=== PATIENT | male | born 1965 | race Caucasian/White ===

== ENCOUNTER → 2017-04-13 | Outpatient (CLI) | payer OTHER ==
[2017-04-13 13:24] VITALS: BP 137/81; PULSE 75; TEMP 97.5; BMI 72.3
--- NOTE | 2017-06-17 18:33 | P.HPBAR ---
Bariatric H&P - History & Physicial H&P Date: 04/13/17 History & Physicial: Visit/CC: Patient initial contact: Initial weight: Initial weight in pounds: Height: Initial BMI: Last weight: Current weight: Current weight in pounds: Current BMI: [place] body weight (based on NIH guidelines): Excess body weight loss: The patient is a 51 year-old M who presents for Bariatric Assessment. DATE OF SERVICE: 04/13/2017 REASON FOR CONSULTATION: Initial bariatric evaluation. HISTORY OF PRESENT ILLNESS: Geovanny Barker is a 51-year-old male who presents with lifelong morbid obesity. As a result of his super morbid obesity, he has developed diabetes type 2 including hypertension. He is undergoing medical supervised weight loss. His highest personal weight was 513 pounds. His body mass index was 76.5. Today he comes in weighing 485 pounds. He has undergone low-carb diet and lost up to 75 pounds. Denies any family history esophageal or stomach cancer. No diarrhea. No reports of Crohn's disease or ulcerative colitis. He has not had a colonoscopy. Has a family history of morbid obesity. He also reports chronic chronic back pain including bilateral knee, ankle, foot pain. Denies any food ALLERGIES. His personal goal is to get down to 220 pounds. He reports past tobacco use over 10 years ago. At his height is 5 foot 8.75 inches, he presents 485 pounds. His body mass index is 72.4. He is 322 pounds overweight. His ideal body weight is 163 pounds. He is evaluating for gastric bypass. PAST MEDICAL HISTORY: 1. Morbid obesity due to excess calories. 2. Body mass index of 76.5 down to 72.4. 3. Hypertensive heart disease. 4. Diabetes type 2, [id number]. 5. Depression. 6. Osteoarthritis of the knees. 7. Osteoarthritis of the ankles. 8. Osteoarthritis of the feet. 9. Osteoarthritis of the lower back. PAST SURGICAL HISTORY: 1. No abdominal surgeries. 2. Tonsillectomy. HOME MEDICATIONS: 1. Glucophage. 2. Januvia. 3. Lisinopril. 4. Lexapro. 5. Motrin. ALLERGIES: Denies. SOCIAL HISTORY: Past tobacco use. FAMILY HISTORY: No family history of ulcerative colitis disease or Crohn's disease. Family history of morbid obesity. No lupus in family. No reports of stomach or esophageal cancer. Mother had thyroid cancer. REVIEW OF ORGAN SYSTEMS: CONSTITUTIONAL: At his height is 5 foot 8.75 inches, he presents 485 pounds. His body mass index is 72.4. He is 322 pounds overweight. His ideal body weight is 163 pounds. His highest personal weight was 513 pounds. His body mass index was 76.5. Today he comes in weighing 485 pounds. Body mass index of 76.5 down to 72.4. HEENT: Denies any active troubles with vision or hearing. No troubles with swallowing. ENDOCRINE: Has diabetes and is on 2 medications for control. No hypothyroidism. CARDIOVASCULAR: No reports of palpitations or heart attacks or chest pain. Has hypertension. RESPIRATORY: No asthma. No recent pneumonias. GI: Denies any bright red blood per rectum or constipation. Does have gastroesophageal reflux disease. MUSCULOSKELETAL: No scoliosis of the spine. Has lower back pain, hip or knee pain. NEURO: No headaches. No seizure disorders. PSYCH: Has depression. No suicidal ideation. RHEUMATOLOGIC: No lupus. No rheumatoid arthritis. HEMATOLOGIC: Denies any abnormal bleeding or bruising. No personal history of DVTs. SKIN: No rash. No skin cancer. PHYSICAL EXAM: VITAL SIGNS: Height 5 foot 8.75 inches, weight 485 pounds. BMI 72.4 Vital Signs Temp 97.5 F L 04/13/17 13:22 Pulse 75 04/13/17 13:22 Resp BP 137/81 04/13/17 13:22 Pulse Ox GENERAL: Well-developed male in no acute distress. HEENT: No scleral icterus. Extraocular movements grossly intact. Hears conversational speech. No nasal drainage. NECK: Supple without lymphadenopathy. CHEST: Nonlabored respirations with equal bilateral excursions. CARDIOVASCULAR: Regular rate on repeat assessment. Distal 2+ pulses. ABDOMEN: Obese, soft, nontender, nondistended. MUSCULOSKELETAL: No clubbing, cyanosis. Gross strength 5/5 distal lower extremities. 2+ pre-tibial pitting edema. NEURO: No focal or lateralizing signs. Cranial nerves 2 through 12 grossly within normal limits. PSYCH: Appropriate affect. Alert and oriented to person, place and time. SKIN: Good skin turgor. Well perfused. ASSESSMENT: 1. Morbid obesity due to excess calories. 2. Body mass index of 76.5 down to 72.4. 3. Hypertensive heart disease. 4. Diabetes type 2, [id number]. 5. Depression. 6. Osteoarthritis of the knees. 7. Osteoarthritis of the ankles. 8. Osteoarthritis of the feet. 9. Osteoarthritis of the lower back. 10. Colonoscopy screening. PLAN: 1. Surgical options including a band, gastric bypass, sleeve gastrectomy were described in detail. Alternatives such as gastric balloon including duodenal switch were described. 2. The [place] bariatric surgical collaborative data and outcomes calculator were described with surgical options. He is evaluating for gastric bypass. 3. Recommend a bariatric metabolic panel to evaluate for micro- including macronutrient deficiencies. 4. Recommend evaluation for sleep apnea during upper endoscopy. 5. Dietary surveillance and counseling was reviewed. 6. Will need cardiac risk assessment for any presence of abnormal EKG. 7. Recommend medical risk assessment. 8. Psych assessment per insurance guidelines. 9. Follow up upon completion of upper endoscopy. 10. Will need six-month medical supervised weight loss pressure with of goal of 10% weight loss. His goal is to get down to 462 pounds. He has lost 25 pounds. 11. Recommend lower endoscopy for colonic screening. Thank you for this consultation. Past Medical History Past Medical History: No Reported History History of Any Multi-Drug Resistant Organisms: None Reported Past Surgical History: Tonsillectomy Past Psychological History: No Psychological Hx Reported Smoking Status: Never smoker Past Alcohol Use History: None Reported Past Drug Use History: None Reported Bariatric Checklist Checklist: Plan: Checklist: EGD: 1. Hiatal hernia: 2. H. Pylori: HgbA1c: Vitamin D: Smoking: Never smoker Primary care physician referral: Psychiatry clearance: Cardiology clearance: Sleep study: Diet journal: VTE risk score: VTE risk level: Rehab needs at discharge:
== END ==
LOC: BARWHC3 11:09
PROVIDERS: ATTEND Surgery Plastic and Reconstructive Surgery
DX: Z48.815 Encounter for surgical aftercare following surgery on the digestive system (principal); E66.01 Morbid (severe) obesity due to excess calories; I11.9 Hypertensive heart disease without heart failure; E11.9 Type 2 diabetes mellitus without complications; F32.9 Major depressive disorder, single episode, unspecified; M17.0 Bilateral primary osteoarthritis of knee; M19.071 Primary osteoarthritis, right ankle and foot; M19.072 Primary osteoarthritis, left ankle and foot; M47.816 Spondylosis without myelopathy or radiculopathy, lumbar region; E89.1 Postprocedural hypoinsulinemia; D50.8 Other iron deficiency anemias; E44.0 Moderate protein-calorie malnutrition; E55.9 Vitamin D deficiency, unspecified; G47.30 Sleep apnea, unspecified; Z68.45 Body mass index [BMI] 70 or greater, adult; Z90.89 Acquired absence of other organs; Z79.899 Other long term (current) drug therapy; Z79.1 Long term (current) use of non-steroidal anti-inflammatories (NSAID); Z87.891 Personal history of nicotine dependence; Z12.11 Encounter for screening for malignant neoplasm of colon
CPT/HCPCS: 99211

== ENCOUNTER → 2017-05-17 | Outpatient (CLI) | payer OTHER ==
[2017-05-17 13:36] VITALS: BP 157/81; PULSE 81; RESP 18; TEMP 98.2; BMI 71.3
[2017-05-17 15:09] LABS: HCT 50.5 % (39.0-53.0); HGB 15.7 gm/dL (13.0-17.5); MCH 27.2 pg (25.0-35.0); MCV 87.7 fL (80.0-100.0); Mean Platelet Volume 6.9; Platelet Count 320 k/uL (150-450); RBC 5.76 m/uL (4.30-5.90); RDW 13.8 % (11.5-15.5); WBC 8.6 k/uL (3.8-10.6)
[2017-05-17 15:15] LABS: ALT 61 U/L (21-72); AST 39 U/L (17-59); Albumin 4.1 g/dL (3.5-5.0); Alkaline Phosphatase 71 U/L (38-126); Anion Gap 12 mmol/L; Blood Urea Nitrogen 16 mg/dL (9-20); Calcium 9.9 mg/dL (8.4-10.2); Carbon Dioxide 27 mmol/L (22-30); Chloride 106 mmol/L (98-107); Cholesterol 191 mg/dL (<200); Glucose 81 mg/dL (74-99); HDL Cholesterol 43 mg/dL (40-60); LDL Cholesterol,Calculated 125 mg/dL (0-99); Potassium 4.5 mmol/L (3.5-5.1); Sodium 145 mmol/L (137-145); Total Bilirubin 0.3 mg/dL (0.2-1.3); Total Protein 7.3 g/dL (6.3-8.2); Triglycerides 113 mg/dL (<150)
[2017-05-17 20:19] LABS: Iron Saturation 18.59 (15.00-50.00)
[2017-05-17 20:28] LABS: Folate, Serum 4.4 ng/mL
[2017-05-17 20:38] LABS: Vitamin D 25 Hydroxy 8.9 ng/mL (30.0-100.0)
[2017-05-17 23:53] LABS: Hemoglobin A1C 5.3 % (4.0-6.0)
[2017-05-22 06:41] LABS: Anabasine Urine 12.4 ng/mL (<2.0)
--- NOTE | 2017-07-03 06:29 | P.PN ---
Subjective Progress Note Date: 05/17/17 DATE OF SERVICE: 05/17/2017 CHIEF COMPLAINT: Bariatric evaluation. HISTORY OF PRESENT ILLNESS: Geovanny Barker is a 51-year-old male who presents with lifelong morbid obesity. As a result of his super morbid obesity, he has developed diabetes type 2 including hypertension. He is undergoing medical supervised weight loss. His highest personal weight was 513 pounds. His body mass index was 76.5. Today he comes in weighing 479 pounds. He has lost 7 pounds in 1 month. He is under medical supervised weight loss. He has completed both an upper and lower endoscopy. No reports of abdominal pain. At his height is 5 foot 8.75 inches, he presents 479 pounds. His body mass index is 71.3. He is 316 pounds overweight. His ideal body weight is 163 pounds. He is evaluating for gastric bypass. He has lost 34 pounds with dieting. PAST MEDICAL HISTORY: 1. Morbid obesity due to excess calories. 2. Body mass index of 76.5. 3. Hypertensive heart disease. 4. Diabetes type 2, [id number]-ggtshee-zshbikppd. 5. Depression. 6. Osteoarthritis of the knees. 7. Osteoarthritis of the ankles. 8. Osteoarthritis of the feet. 9. Osteoarthritis of the lower back. PAST SURGICAL HISTORY: 1. No abdominal surgeries. 2. Tonsillectomy. HOME MEDICATIONS: 1. Glucophage. 2. Januvia. 3. Lisinopril. 4. Lexapro. 5. Motrin. ALLERGIES: Denies. SOCIAL HISTORY: Past tobacco use. FAMILY HISTORY: No family history of ulcerative colitis disease or Crohn's disease. Family history of morbid obesity. No lupus in family. No reports of stomach or esophageal cancer. Mother had thyroid cancer. REVIEW OF ORGAN SYSTEMS: CONSTITUTIONAL: At his height is 5 foot 8.75 inches, his ideal body weight is 163 pounds. His highest personal weight was 513 pounds. His body mass index was 76.5. Today he comes in weighing 479 pounds. Body mass index of 76.5 down to 71.3. HEENT: Denies any active troubles with vision or hearing. No troubles with swallowing. ENDOCRINE: Has diabetes and is on 2 medications for control. No hypothyroidism. CARDIOVASCULAR: No reports of palpitations or heart attacks or chest pain. Has hypertension. RESPIRATORY: No asthma. No recent pneumonias. GI: Denies any bright red blood per rectum or constipation. Does have gastroesophageal reflux disease. MUSCULOSKELETAL: No scoliosis of the spine. Has lower back pain, hip or knee pain. NEURO: No headaches. No seizure disorders. PSYCH: Has depression. No suicidal ideation. RHEUMATOLOGIC: No lupus. No rheumatoid arthritis. HEMATOLOGIC: Denies any abnormal bleeding or bruising. No personal history of DVTs. SKIN: No rash. No skin cancer. PHYSICAL EXAM: VITAL SIGNS: Height 5 foot 8.75 inches, weight 479 pounds. BMI 71.3 Vital Signs Temp 98.2 F 05/17/17 13:29 Pulse 81 05/17/17 13:29 Resp 18 05/17/17 13:29 BP 157/81 05/17/17 13:29 Pulse Ox GENERAL: Well-developed male in no acute distress. HEENT: No scleral icterus. Extraocular movements grossly intact. Hears conversational speech. No nasal drainage. NECK: Supple without lymphadenopathy. CHEST: Nonlabored respirations with equal bilateral excursions. CARDIOVASCULAR: Regular rate on repeat assessment. Distal 2+ pulses. ABDOMEN: Obese, soft, nontender, nondistended. MUSCULOSKELETAL: No clubbing, cyanosis. Gross strength 5/5 distal lower extremities. 2+ pre-tibial pitting edema. NEURO: No focal or lateralizing signs. Cranial nerves 2 through 12 grossly within normal limits. PSYCH: Appropriate affect. Alert and oriented to person, place and time. SKIN: Good skin turgor. Well perfused. COLON FINDINGS: Internal hemorrhoids, grade 1 No external prolapsed hemorrhoids. No arteriovenous malformations. Moderate sigmoid diverticulosis. A 3 mm polyp was identified along 30 cm from the anal verge, hyperplastic. No focal colitis. EGD FINDINGS: Squamocolumnar junction 42 cm from the incisors. Diaphragmatic hiatus at 42 cm. Hill grade 3 lower esophageal valve. LA grade B erosive esophagitis. Active gastritis. No active duodenitis. Final Pathologic Diagnosis A. GASTRIC ANTRUM, BIOPSY: CHRONIC GASTRITIS. IMMUNOPEROXIDASE STAIN NEGATIVE FOR HELICOBACTER PYLORI ORGANISMS (CONTROLS APPROPRIATE). B. COLON, 30 CM, BIOPSY: HYPERPLASTIC POLYP. ASSESSMENT: 1. Morbid obesity due to excess calories. 2. Body mass index of 76.5 down to 71.3. 3. Hypertensive heart disease. 4. Diabetes type 2, [id number]-ulwinhtgo. 5. Depression. 6. Osteoarthritis of the knees. 7. Osteoarthritis of the ankles. 8. Osteoarthritis of the feet. 9. Osteoarthritis of the lower back. 10. Obstructive sleep apnea. PLAN: 1. Repeat colonoscopy in 5 years discussed. 2. Recommend completion of bariatric labs. 3. He's pending completion of medical risk profile. 4. He is evaluating for gastric bypass. ADDENDUM: Laboratory Last Values WBC 8.6 k/uL (3.8-10.6) 05/17/17 14:37 RBC 5.76 m/uL (4.30-5.90) 05/17/17 14:37 Hgb 15.7 gm/dL (13.0-17.5) 05/17/17 14:37 Hct 50.5 % (39.0-53.0) 05/17/17 14:37 MCV 87.7 fL (80.0-100.0) 05/17/17 14:37 MCH 27.2 pg (25.0-35.0) 05/17/17 14:37 MCHC 31.0 g/dL (31.0-37.0) 05/17/17 14:37 RDW 13.8 % (11.5-15.5) 05/17/17 14:37 Plt Count 320 k/uL (150-450) 05/17/17 14:37 Sodium 145 mmol/L (137-145) 05/17/17 14:37 Potassium 4.5 mmol/L (3.5-5.1) 05/17/17 14:37 Chloride 106 mmol/L (98-107) 05/17/17 14:37 Carbon Dioxide 27 mmol/L (22-30) 05/17/17 14:37 Anion Gap 12 mmol/L 05/17/17 14:37 BUN 16 mg/dL (9-20) 05/17/17 14:37 Creatinine 1.00 mg/dL (0.66-1.25) 05/17/17 14:37 Est GFR (MDRD) Af Amer >60 (>60 ml/min/1.73 sqM) 05/17/17 14:37 Est GFR (MDRD) Non-Af >60 (>60 ml/min/1.73 sqM) 05/17/17 14:37 Glucose 81 mg/dL (74-99) 05/17/17 14:[address] Glu mg/dL 105 05/17/17 14:37 Hemoglobin A1c 5.3 % (4.0-6.0) 05/17/17 14:37 Calcium 9.9 mg/dL (8.4-10.2) 05/17/17 14:37 Iron 66 ug/dL (65-175) 05/17/17 14:37 TIBC 355 ug/dL (228-460) 05/17/17 14:37 Iron Saturation 18.59 (15.00-50.00) 05/17/17 14:37 Ferritin 233.3 ng/mL (22.0-322.0) 05/17/17 14:37 Total Bilirubin 0.3 mg/dL (0.2-1.3) 05/17/17 14:37 AST 39 U/L (17-59) 05/17/17 14:37 ALT 61 U/L (21-72) 05/17/17 14:37 Alkaline Phosphatase 71 U/L (38-126) 05/17/17 14:37 Total Protein 7.3 g/dL (6.3-8.2) 05/17/17 14:37 Albumin 4.1 g/dL (3.5-5.0) 05/17/17 14:37 Triglycerides 113 mg/dL (<150) 05/17/17 14:37 Cholesterol 191 mg/dL (<200) 05/17/17 14:37 LDL Cholesterol, Calc 125 mg/dL (0-99) H 05/17/17 14:37 HDL Cholesterol 43 mg/dL (40-60) 05/17/17 14:37 Vitamin B1 52 ug/L (38-122) 05/17/17 14:37 Vitamin D 25-Hydroxy 8.9 ng/mL (30.0-100.0) L 05/17/17 14:37 Folate 4.4 ng/mL 05/17/17 14:37 TSH 3.570 mIU/L (0.465-4.680) 05/17/17 14:37 Urine Cotinine 1848.1 ng/mL (<5.0) H 05/17/17 14:37 Urine Nicotine 330.4 ng/mL (<2.0) H 05/17/17 14:37 Urine Anabasine 12.4 ng/mL (<2.0) H 05/17/17 14:37 EKG EKG PERFORMED 05/17/17 14:37 Miscellaneous Test Urine Drug, Pain 05/17/17 14:38 Misc Test Result See Comment 05/17/17 14:38 Vitamin D deficiency. Urine cotinine consistent with active tobacco use. Will need strict tobacco cessation 4 to 6 weeks prior to surgery. EKG normal. Objective - Vital Signs Vital signs: Vital Signs Temp 98.2 F 05/17/17 13:29 Pulse 81 05/17/17 13:29 Resp 18 05/17/17 13:29 BP 157/81 05/17/17 13:29 Pulse Ox Intake & Output 05/16/17 05/17/17 05/17/17 18:59 06:59 18:59 Weight 217.543 kg - Labs CBC & Chem 7: 05/17/17 14:37 05/17/17 14:37
== END | disposition home or self-care (01) ==
LOC: BARWHC3 13:12
PROVIDERS: ATTEND Surgery Plastic and Reconstructive Surgery
DX: Z48.815 Encounter for surgical aftercare following surgery on the digestive system (principal); E66.01 Morbid (severe) obesity due to excess calories; I11.9 Hypertensive heart disease without heart failure; E11.9 Type 2 diabetes mellitus without complications; F32.9 Major depressive disorder, single episode, unspecified; M17.0 Bilateral primary osteoarthritis of knee; M19.071 Primary osteoarthritis, right ankle and foot; M19.072 Primary osteoarthritis, left ankle and foot; M47.816 Spondylosis without myelopathy or radiculopathy, lumbar region; G47.33 Obstructive sleep apnea (adult) (pediatric); E89.1 Postprocedural hypoinsulinemia; D50.8 Other iron deficiency anemias; E44.0 Moderate protein-calorie malnutrition; E55.9 Vitamin D deficiency, unspecified; Z68.45 Body mass index [BMI] 70 or greater, adult; Z79.84 Long term (current) use of oral hypoglycemic drugs; Z79.899 Other long term (current) drug therapy; Z79.1 Long term (current) use of non-steroidal anti-inflammatories (NSAID); Z71.51 Drug abuse counseling and surveillance of drug abuser
CPT/HCPCS: 84425; 80061; 80053; 82728; 82746; 83540; 83550; 84443; 85027; 82306; 80307; 83036; 93005; G0480 ×2; G0463; 80323; 80356; 99211

== ENCOUNTER → 2018-01-01 | Outpatient (CLI) | payer OTHER ==
--- NOTE | 2018-01-09 10:13 | P.ARTDOP ---
Arterial Doppler LOWER EXTREMITY ARTERIAL DOPPLER: DATE OF SERVICE: 01/01/2018 Reason for study: Right leg pain. Doppler waveforms: Multiphasic bilaterally throughout. Pulse volume recording: Normal configurations throughout. Pressure gradients: None. Ankle-brachial indices: Greater than 1 bilaterally. Toe pressures: [] on the right, [] on the left Impression: Normal study.
== END | disposition home or self-care (01) ==
LOC: RADUSWWP 13:39
PROVIDERS: ATTEND Family Medicine
DX: R60.0 Localized edema (principal)
CPT/HCPCS: 93923

== ENCOUNTER 2019-04-10 17:15 | Emergency (ER) | payer MEDICARE, OTHER ==
[2019-04-10 17:26] VITALS: TEMP 98
--- NOTE | 2019-04-10 18:03 | ED ---
General Adult HPI - General Chief complaint: Back Pain/Injury Stated complaint: Back pain Time Seen by Provider: 04/10/19 18:01 Source: patient, RN notes reviewed Mode of arrival: ambulatory Limitations: no limitations - History of Present Illness Initial comments: 53-year-old male with a past medical history of diabetes mellitus, hypertension presents to the emergency department for a chief complaint of upper back pain. Patient states this pain has been intermittent for about 1 month. States it is a sharp shooting pain that radiates up to his neck. She states it also radiates to his upper abdomen and causes nausea. Patient does admit that pain sometimes worsens with movement. Denies chest pain. Denies any injuries. States it does seem to be tender along his spine but denies any injury. Patient has no other complaints at this time including shortness of breath, chest pain, abdominal pain, nausea or vomiting, headache, or visual changes. - Related Data Home Medications Medication Instructions Recorded Confirmed Ibuprofen [Motrin] 800 mg PO Q6HR PRN 03/17/16 05/17/17 Escitalopram [Lexapro] 10 mg PO DAILY 04/21/17 05/17/17 Lisinopril [Zestril] 5 mg PO DAILY 04/21/17 05/17/17 metFORMIN HCL [Glucophage] 500 mg PO BID 04/21/17 05/17/17 sitaGLIPtin [Januvia] 100 mg PO DAILY 04/21/17 05/17/17 Previous Rx's Medication Instructions Recorded Omeprazole 40 mg PO DAILY #30 capsule. 05/17/17 Cyclobenzaprine [Flexeril] 10 mg PO TID #20 tab 04/10/19 Allergies Allergy/AdvReac Type Severity Reaction Status Date / Time No Known Allergies Allergy Verified 04/10/19 17:26 Review of Systems ROS Statement: Those systems with pertinent positive or pertinent negative responses have been documented in the HPI. ROS Other: All systems not noted in ROS Statement are negative. Past Medical History Past Medical History: Diabetes Mellitus, Hypertension History of Any Multi-Drug Resistant Organisms: None Reported Past Surgical History: Tonsillectomy Additional Past Surgical History / Comment(s): 05/2017 colonoscopy and EGD Past Anesthesia/Blood Transfusion Reactions: No Reported Reaction Past Psychological History: Anxiety, Depression Smoking Status: Never smoker Past Alcohol Use History: None Reported Past Drug Use History: None Reported - Past Family History Mother Family Medical History: Cancer General Exam Limitations: no limitations General appearance: alert, in no apparent distress Head exam: Present: atraumatic, normocephalic, normal inspection Eye exam: Present: normal appearance, PERRL, EOMI. Absent: scleral icterus, conjunctival injection, periorbital swelling ENT exam: Present: normal exam, mucous membranes moist Neck exam: Present: normal inspection, full ROM. Absent: tenderness, meningismus, lymphadenopathy Respiratory exam: Present: normal lung sounds bilaterally. Absent: respiratory distress, wheezes, rales, rhonchi, stridor Cardiovascular Exam: Present: regular rate, normal rhythm, normal heart sounds. Absent: systolic murmur, diastolic murmur, rubs, gallop, clicks GI/Abdominal exam: Present: soft, normal bowel sounds. Absent: distended, tenderness (Nontender abdomen), guarding, rebound, rigid Extremities exam: Present: normal capillary refill (Bilateral DP and radial pulses of 2+ and equal.), other (Sensation intact in all extremities.) Back exam: Present: vertebral tenderness (Tenderness of T5-T9 area) Neurological exam: Present: alert, oriented X3 Psychiatric exam: Present: normal mood Course Vital Signs 04/10/19 04/10/19 17:21 20:48 Temperature 98.0 F Pulse Rate 94 77 Respiratory 22 18 Rate Blood Pressure 144/90 118/60 O2 Sat by Pulse 97 98 Oximetry Medical Decision Making - Medical Decision Making patient was initially mildly hypertensive upon arrival with a blood pressure of 144/90. Abdomen was nontender. Patient did have some thoracic back tenderness. He denied any associated chest pain but did admit to associated epigastric pain with nausea. This has all been going on for about a month. CBC and CMP were obtained. Troponin was negative. After kidney function was evaluated CT of aorta was obtained to rule out dissection or aneurysm. Specific concern was thoracic. CTA of the chest and abdomen is limited however there was no dissection or dilation of the thoracic aorta. Abdominal CT was nondiagnostic due to beam hardening artifact but did not seem to be aneurysmal. Again, concern was thoracic aorta. Given tenderness and increased pain with movement pain is likely musculoskeletal in nature. Pain did improve after 2 mg of morphine was given. - Lab Data Result diagrams: 04/10/19 18:35 04/10/19 18:35 Lab Results 04/10/19 04/10/19 04/10/19 Range/Units 18:35 18:35 18:35 WBC 8.7 (3.8-10.6) k/uL RBC 5.54 (4.30-5.90) m/uL Hgb 16.1 (13.0-17.5) gm/dL Hct 49.0 (39.0-53.0) % MCV 88.3 (80.0-100.0) fL MCH 29.0 (25.0-35.0) pg MCHC 32.9 (31.0-37.0) g/dL RDW 13.9 (11.5-15.5) % Plt Count 333 (150-450) k/uL Neutrophils % 72 % Lymphocytes % 16 % Monocytes % 8 % Eosinophils % 3 % Basophils % 1 % Neutrophils # 6.2 (1.3-7.7) k/uL Lymphocytes # 1.4 (1.0-4.8) k/uL Monocytes # 0.7 (0-1.0) k/uL Eosinophils # 0.2 (0-0.7) k/uL Basophils # 0.1 (0-0.2) k/uL PT 10.4 (9.0-12.0) sec INR 1.0 (<1.2) APTT 22.3 (22.0-30.0) sec Sodium 138 (137-145) mmol/L Potassium 4.7 (3.5-5.1) mmol/L Chloride 108 H (98-107) mmol/L Carbon Dioxide 20 L (22-30) mmol/L Anion Gap 10 mmol/L BUN 17 (9-20) mg/dL Creatinine 0.98 (0.66-1.25) mg/dL Est GFR (CKD-EPI)AfAm >90 (>60 ml/min/1.73 sqM) Est GFR (CKD-EPI)NonAf 89 (>60 ml/min/1.73 sqM) Glucose 102 H (74-99) mg/dL Calcium 9.3 (8.4-10.2) mg/dL Total Bilirubin 0.5 (0.2-1.3) mg/dL AST 41 (17-59) U/L ALT 39 (21-72) U/L Alkaline Phosphatase 86 (38-126) U/L Troponin I (0.000-0.034) ng/mL Total Protein 7.6 (6.3-8.2) g/dL Albumin 4.1 (3.5-5.0) g/dL 04/10/19 Range/Units 18:35 WBC (3.8-10.6) k/uL RBC (4.30-5.90) m/uL Hgb (13.0-17.5) gm/dL Hct (39.0-53.0) % MCV (80.0-100.0) fL MCH (25.0-35.0) pg MCHC (31.0-37.0) g/dL RDW (11.5-15.5) % Plt Count (150-450) k/uL Neutrophils % % Lymphocytes % % Monocytes % % Eosinophils % % Basophils % % Neutrophils # (1.3-7.7) k/uL Lymphocytes # (1.0-4.8) k/uL Monocytes # (0-1.0) k/uL Eosinophils # (0-0.7) k/uL Basophils # (0-0.2) k/uL PT (9.0-12.0) sec INR (<1.2) APTT (22.0-30.0) sec Sodium (137-145) mmol/L Potassium (3.5-5.1) mmol/L Chloride (98-107) mmol/L Carbon Dioxide (22-30) mmol/L Anion Gap mmol/L BUN (9-20) mg/dL Creatinine (0.66-1.25) mg/dL Est GFR (CKD-EPI)AfAm (>60 ml/min/1.73 sqM) Est GFR (CKD-EPI)NonAf (>60 ml/min/1.73 sqM) Glucose (74-99) mg/dL Calcium (8.4-10.2) mg/dL Total Bilirubin (0.2-1.3) mg/dL AST (17-59) U/L ALT (21-72) U/L Alkaline Phosphatase (38-126) U/L Troponin I <0.012 (0.000-0.034) ng/mL Total Protein (6.3-8.2) g/dL Albumin (3.5-5.0) g/dL Disposition Clinical Impression: Thoracic back pain Disposition: HOME SELF-CARE Condition: Poor Instructions (If sedation given, give patient instructions): Back Pain (ED) Additional Instructions: Please take Tylenol for pain. Take muscle relaxer as directed. Do not drive or operate machinery while taking this. Follow-up with primary care at your appointment on Monday. If you have any worsening symptoms be sure to return immediately to the emergency department. Prescriptions: Cyclobenzaprine [Flexeril] 10 mg PO TID #20 tab Is patient prescribed a controlled substance at d/c from ED?: No Referrals: Colton Foster MD [Primary Care Provider] - 1-2 days Time of Disposition: 21:05
[2019-04-10] MEDS ORDERED: MORPHINE SULFATE 4 MG/ML SYRINGE IVP STA (18:25)
[2019-04-10 18:58] LABS: Basophils # (A) 0.1 k/uL (0-0.2); Basophils % (A) 1 %; Eosinophils # (A) 0.2 k/uL (0-0.7); Eosinophils % (A) 3 %; HGB 16.1 gm/dL (13.0-17.5); Lymphocytes # (A) 1.4 k/uL (1.0-4.8); Lymphocytes % (A) 16 %; MCHC 32.9 g/dL (31.0-37.0); MCV 88.3 fL (80.0-100.0); Mean Platelet Volume 6.4; Monocytes # (A) 0.7 k/uL (0-1.0); Monocytes % (A) 8 %; Neutrophils # (A) 6.2 k/uL (1.3-7.7); Neutrophils % (A) 72 %; Platelet Count 333 k/uL (150-450); RBC 5.54 m/uL (4.30-5.90); RDW 13.9 % (11.5-15.5); WBC 8.7 k/uL (3.8-10.6)
[2019-04-10 19:00] LABS: ALT 39 U/L (21-72); AST 41 U/L (17-59); African American GFR (CKD) >90 (>60 ml/min/1.73 sqM); Albumin 4.1 g/dL (3.5-5.0); Alkaline Phosphatase 86 U/L (38-126); Anion Gap 10 mmol/L; Blood Urea Nitrogen 17 mg/dL (9-20); Calcium 9.3 mg/dL (8.4-10.2); Carbon Dioxide 20 mmol/L (22-30); Chloride 108 mmol/L (98-107); Glucose 102 mg/dL (74-99); Potassium 4.7 mmol/L (3.5-5.1); Sodium 138 mmol/L (137-145); Total Bilirubin 0.5 mg/dL (0.2-1.3); Total Protein 7.6 g/dL (6.3-8.2)
[2019-04-10] MEDS ORDERED: SODIUM CHLORIDE 0.9% 500 ML 500 ML IV STA (19:00)
[2019-04-10 19:01] LABS: Partial Thromboplastin Time 22.3 sec (22.0-30.0); Prothrombin Time 10.4 sec (9.0-12.0)
--- NOTE | 2019-04-10 20:39 | CT ---
EXAMINATION TYPE: CT angio thor/abd pel aorta DATE OF EXAM: 04/10/2019 COMPARISON: None HISTORY: Thoracic back pain. Pt habitus [address] DLP: 3570.5 mGycm, Automated exposure control for dose reduction was used. CONTRAST: Performed injected with 100 mL of Isovue 370. TECHNIQUE: Axial images were obtained at 5 mm thick sections. Reconstructed images are reviewed on [employer] computer in the coronal plane. FINDINGS: There is limitation due to patient body habitus Portion of the thyroid visualized is normal. No suspicious lung nodules or focal infiltrates are present. No enlarged mediastinal or hilar adenopathy is evident. The ascending aorta diameter at the level o f the main pulmonary artery is 3.5 cm. The main pulmonary artery diameter at the bifurcation is 3.2 cm. Thoracic vertebral bodies appear intact. No compression deformities are identified. CT abdomen: Limited CT sections are obtained through the abdomen. Abdomen is essentially nondiagnost ic due to beam hardening artifact. The aortic be detected does not appear aneurysmal. Grossly the org ans appear normal position in size. Underlying masses and other abnormalities cannot be excluded. IMPRESSIONS: 1. CTA of the chest and abdomen is limited due to patient body habitus. 2. No aneurysmal dilatation of the thoracic or abdominal aorta is identified. 3. No dissection of the thoracic abdomen. Abdominal abdomen is nondiagnostic for dissection. 4. Abdomen detail is nondiagnostic.
[2019-04-10 20:48] VITALS: BP 118/60; PULSE 77; RESP 18
== END 2019-04-10 21:25 | disposition home or self-care (01) ==
LOC: EC 17:15
DX: M54.6 Pain in thoracic spine (principal); R10.13 Epigastric pain; R11.0 Nausea; E11.9 Type 2 diabetes mellitus without complications; I10 Essential (primary) hypertension; F41.9 Anxiety disorder, unspecified; F32.9 Major depressive disorder, single episode, unspecified; Z79.84 Long term (current) use of oral hypoglycemic drugs; Z79.899 Other long term (current) drug therapy
CPT/HCPCS: 36415; 93005; 80053; 84484; 85025; 85610; 85730; 71275; 74174; 99284; 96374; 96361; J2270; Q9967

== ENCOUNTER → 2019-05-09 | Outpatient (CLI) | payer MEDICARE ==
--- NOTE | 2019-05-09 10:49 | CT ---
EXAMINATION TYPE: CT abdomen pelvis wo/w con DATE OF EXAM: 05/09/2019 COMPARISON: 04/10/2019 INDICATION: Gross hematuria DLP: 9784.2 mGycm, Automated exposure control for dose reduction was used. CONTRAST: 100 mL of Isovue 300. Study performed with Oral Contrast TECHNIQUE: Axial images were obtained from above the diaphragm to the pubic rami in the axial plane a t 5 mm thick sections. Reconstructed images are reviewed on the computer in the coronal plane. Exam is limited due to patient body habitus. Delayed images were greater than typical three-minute delay. FINDINGS: Limited CT sections are obtained the lung bases. The lung bases are clear. CT ABDOMEN: Liver: Normal Spleen: Normal Pancreas: Fatty infiltration is present throughout the pancreas. Adrenal glands: The adrenal glands are normal. Gallbladder: Multiple gallstones are present. Kidneys: No masses are evident. No hydronephrosis is present. No cysts are present. Delayed images were obtained through the kidneys, which remain unremarkable. Aorta: Normal Inferior vena cava: Normal. CT PELVIS: Loops of bowel within the abdomen and pelvis are normal. There are loops of bowel which are incom pletely distended or lack oral contrast limiting their evaluation. Appendix: Not clearly identified. No suspicious inflammatory changes or dilated tubular structures ar e evident. Urinary bladder: Normal. Genitourinary structures: Prostate is not well visualized. Osseous structures: No suspicious lytic or sclerotic lesions. Some degenerative changes at the bilate ral hips. IMPRESSIONS: 1. Exam is limited due to patient body habitus. 2. No suspicious acute changes evident. 3. No abnormality to account for hematuria.
== END ==
LOC: RADCTMAIN 08:20
PROVIDERS: ATTEND Family Medicine
DX: R31.0 Gross hematuria (principal)
CPT/HCPCS: 74178; Q9967 ×2

== ENCOUNTER 2023-03-10 05:49 | Day surgery (SDC) | payer MEDICARE, OTHER ==
[2023-03-08 14:32] VITALS: BMI 66.5
[2023-03-10] MEDS ORDERED: LACTATED RINGERS 1,000 ML IV ONE (06:51)
[2023-03-10 07:02] VITALS: TEMP 97.3
[2023-03-10] MEDS ORDERED: LIDOCAINE 1% INJ 10MG/ML (20 ML MDV) ONE (07:10)
[2023-03-10] MEDS ORDERED: PROPOFOL 10 MG/ML 20 ML VIAL IV ONE (07:10)
[2023-03-10 07:14] LABS: African American GFR (CKD) >90 (>60 ml/min/1.73 sqM); Anion Gap 11 mmol/L; Blood Urea Nitrogen 14 mg/dL (9-20); Carbon Dioxide 18 mmol/L (22-30); Chloride 111 mmol/L (98-107); Glucose 113 mg/dL (74-99); Non-African American GFR(CKD) >90 (>60 ml/min/1.73 sqM); Sodium 140 mmol/L (137-145)
[2023-03-10] MEDS ORDERED: SODIUM CHLORIDE 0.9% 1,000 ML IV SCH (07:30)
--- NOTE | 2023-03-10 07:33 | P.PCN ---
Date of Procedure: 03/10/23 Description of Procedure: Indication: Atrial fibrillation Procedure Description: After explaining the procedure to the patient, it's risk and complications, blood pressure, heart rate and O2 saturation were monitored. The throat was sprayed with Cetacaine. Patient received sedation per anesthesia department. The probe was introduced into the esophagus without difficulty. Images were obtained. Following that, the probe was removed. There was no immediate complication. Findings: Left atrial size is mildly dilated, left ventricle size and systolic function are normal. Left atrial appendage is normal. The aortic valve, mitral valve and tricuspid valve are normal. Descending thoracic aorta appears to be normal. Contrast bubble study revealed no shunting across the intra-atrial septum. No pericardial effusion was noted. Doppler: Pulse wave and color Doppler were obtained, and revealed mild mitral regurgitation, there was no shunting by color Doppler study. Conclusion: 1. Mildly dilated left atrium is normal in appearance of the left atrial appendage 2. Normal in size and systolic function 3. Mild mitral regurgitation 4. No shunting across the intra-atrial septum 5. No pericardial effusion Cardioversion: After obtaining transesophageal echocardiogram and sedated state synchronize biphasic cardioversion using 150 J was performed with rastafari of sinus mechanism, there was no immediate complications.
[2023-03-10] MEDS ORDERED: APIXABAN 5 MG TAB PO SCH (09:00)
[2023-03-10] MEDS ORDERED: ESCITALOPRAM 10 MG TAB PO SCH (09:00)
[2023-03-10] MEDS ORDERED: METOPROLOL TARTRATE 25 MG TAB PO SCH (09:00)
[2023-03-10] MEDS ORDERED: LISINOPRIL-HCTZ 20-25 MG 1 EACH TAB PO SCH (09:00)
[2023-03-10 09:31] VITALS: BP 138/90; PULSE 70; RESP 12
== END 2023-03-10 09:26 | disposition home or self-care (01) ==
LOC: OR 05:49
PROVIDERS: ATTEND Internal Medicine Interventional Cardiology
DX: I34.0 Nonrheumatic mitral (valve) insufficiency (principal); I48.19 Other persistent atrial fibrillation; I51.7 Cardiomegaly; G47.33 Obstructive sleep apnea (adult) (pediatric); E66.01 Morbid (severe) obesity due to excess calories; Z79.01 Long term (current) use of anticoagulants; Z79.899 Other long term (current) drug therapy; Z87.891 Personal history of nicotine dependence; Z68.44 Body mass index [BMI] 60.0-69.9, adult
CPT/HCPCS: 93312; 93320; 93005; 93325; 92960; 80048; J2001; J2704

== ENCOUNTER → 2023-05-30 | Outpatient (CLI) | payer MEDICARE, OTHER ==
--- NOTE | 2023-05-30 07:30 | US ---
EXAMINATION TYPE: US carotid duplex BILAT DATE OF EXAM: 05/30/2023 COMPARISON: NONE CLINICAL INDICATION: Male, 58 years old with history of R09.89 OTH SYMPTOMS AND SIGNS INVOLVING THE C IRC A; Neck pain x few months; HTN; Former smoker TECHNIQUE: Carotid duplex ultrasound examination. Indirect Doppler criteria was utilized. FINDINGS: EXAM MEASUREMENTS: RIGHT: Peak Systolic Velocity (PSV) cm/sec ----- Right CCA: 90 ----- Right ICA: 88 ----- Right ECA: 83 ICA/CCA ratio: 1.0 RIGHT: End Diastole cm/sec ----- Right CCA: 20 ----- Right ICA: 25 ----- Right ECA: 20 LEFT: Peak Systolic Velocity (PSV) cm/sec ----- Left CCA: 84 ----- Left ICA: 73 ----- Left ECA: 80 ICA/CCA ratio: 0.9 LEFT: End Diastole cm/sec ----- Left CCA: 23 ----- Left ICA: 34 ----- Left ECA: 9 VERTEBRALS (direction of flow): Right Vertebral: Antegrade Left Vertebral: Antegrade Rhythm: Arrhythmia DIRECTOR OF PLACEMENT NOTES: No intimal thickening, plaque, ir elevated velocities seen. Substantial bilateral CCA movement with respirations IMPRESSION: Less than 50% stenosis of the bilateral carotid bifurcations. Criteria for Assigning % of Stenosis / Diameter reduction (Estimation based on the indirect measurements of the internal carotid artery velocities (ICA PSV). 1. Normal (no stenosis)=ICA PSV < 125 cm/s: ratio < 2.0: ICA EDV<40 cm/s. 2. Less than 50% stenosis=ICA PSV < 125 cm/s: ratio < 2.0: ICA EDV<40 cm/s. 3. 50 to 69% stenosis=ICA PSV of 125 to 230 cm/s: ration 2.0 ? 4.0: ICA EDV 40-100 cm/s. 4. Greater than 70% stenosis to near occlusion= ICA PSV > 230 cm/s: ratio > 4.0: ICA EDV > 100 cm/s. 5. Near occlusion= ICA PSV velocities may be low or undetectable: variable ratio and ICA EDV. 6. Total occlusion=unable to detect flow.
== END | disposition home or self-care (01) ==
LOC: RADUSWWP 07:01
PROVIDERS: ATTEND Family Medicine
DX: I65.23 Occlusion and stenosis of bilateral carotid arteries (principal); R09.89 Other specified symptoms and signs involving the circulatory and respiratory systems; I10 Essential (primary) hypertension
CPT/HCPCS: 93880

== ENCOUNTER → 2023-07-26 | Outpatient (CLI) | payer MEDICARE, OTHER ==
[2023-07-26 14:11] VITALS: BP 127/84; PULSE 118; TEMP 97.7; BMI 74.1
--- NOTE | 2023-07-26 14:36 | P.HPBAR ---
Bariatric H&P - History & Physicial H&P Date: 07/26/23 History & Physicial: Visit/CC: new patient Patient initial contact: Initial weight: Initial weight in pounds: Height: 5 ft 8.5 in Initial BMI: Last weight: Current weight: 224.528 kg Current weight in pounds: 495.00 Current BMI: 74.1 [place] body weight (based on NIH guidelines): 71.214 kg Excess body weight loss: The patient is a 58 year-old M who presents for Bariatric Assessment. He has lifelong morbid obesity. He comes in BMI over 70. For the last 20 years, he loses 5 pounds then gain 20 pounds. He has tried diet and exercise. Three years ago lost 88 pounds but gained 30 poounds. Highest is 560 pounds. He did keto diet. he avoid breads and pasta. Family members are not overweiight. He has atrial fibrillation and sees Dr. Houser and had cardioversion. NO chest pain or heart attacks. No blood clots. No stomach cancer. No esophageal cancer. NO moderate reflux. Las colonoscopy 6 years ago and had a polyp. Due for colonoscopy. No back pain. No hip pain. Has knee pain. No ankle pain. No foot pain. No food allergies. NO IBD in family. Looking into the sleeve. Still gallbladder. Needs gallbladder out and has gallstones. Need updated US liver. CT reviewed with multiple Past Medical History Past Medical History: Atrial Fibrillation, Diabetes Mellitus, Hypertension Additional Past Medical History / Comment(s): SOB with exertion, Diet Controlled Diabetes. Occasional edema lower leg/feet. Gout occasionally in left great toe. History of Any Multi-Drug Resistant Organisms: None Reported Past Surgical History: Tonsillectomy Additional Past Surgical History / Comment(s): Colonoscopy, EGD. Past Anesthesia/Blood Transfusion Reactions: No Reported Reaction Additional Past Anesthesia/Blood Transfusion Reaction / Comm: Pt has never had a blood transfusion. Past Psychological History: Anxiety, Depression Additional Psychological History / Comment(s): Pt resides alone. Smoking Status: Former smoker Past Alcohol Use History: None Reported Additional Past Alcohol Use History / Comment(s): Started smoking in 1982 and quit in 2001. Past Drug Use History: None Reported - Past Family History Mother Family Medical History: Cancer Surgical - Exam Vital Signs Temp Pulse BP 97.7 F 118 H 127/84 07/26/23 13:57 07/26/23 13:57 07/26/23 13:57 Bariatric Checklist Checklist: Plan: Checklist: EGD: 1. Hiatal hernia: 2. H. Pylori: HgbA1c: Vitamin D: Smoking: Never smoker Primary care physician referral: MAURILIO Farrar Psychiatry clearance: Cardiology clearance: Sleep study: Diet journal: VTE risk score: VTE risk level: Rehab needs at discharge:
[2023-07-26 16:08] LABS: Partial Thromboplastin Time 27.2 sec (22.0-30.0); Prothrombin Time 11.3 sec (10.0-12.5)
[2023-07-27 02:21] LABS: HCT 52.8 % (39.6-50.0); HGB 16.8 g/dL (13.0-17.0); MCH 28.9 pg (27.0-32.0); MCHC 31.8 g/dL (32.0-37.0); MCV 90.9 FL (80.0-97.0); NRBC Per 100 WBC 0 X 10*3/uL (0.00-0.01); Platelet Count 317 X 10*3/uL (140-440); RBC 5.81 X 10*6/uL (4.40-5.60)
[2023-07-27 02:37] LABS: Prealbumin 21.6 mg/dL (18.0-42.0)
[2023-07-27 03:00] LABS: % Iron Saturation 29.65 (15.00-50.00); ALT 32 U/L (10-49); AST 34 U/L (14-35); Albumin 4.1 g/dL (3.8-4.9); Albumin/Globulin Ratio 1.24 Ratio (1.60-3.17); Alkaline Phosphatase 86 U/L (41-126); Blood Urea Nitrogen 13.8 mg/dL (9.0-27.0); Calcium 9.8 mg/dL (8.7-10.3); Carbon Dioxide 20.6 mmol/L (21.6-31.8); Chloride 107 mmol/L (96-109); Globulin 3.3 g/dL (1.6-3.3); Glucose 96 mg/dL (70-110); Iron 118 UG/DL (65-175); LDL Cholesterol,Calculated 111.2 mg/dL (0.0-131.0); Magnesium 2.1 mg/dL (1.5-2.4); Phosphorus 3.1 mg/dL (2.4-5.1); Potassium 4.4 mmol/L (3.5-5.5); Sodium 141 mmol/L (135-145); Total Bilirubin 0.4 mg/dL (0.3-1.2); Total Iron Binding Capacity 398 UG/DL (228-460); Total Protein 7.4 g/dL (6.2-8.2)
[2023-07-27 14:55] LABS: Zinc, Serum 92 ug/dL (60-130)
[2023-07-28 08:51] LABS: Vitamin A 36 ug/dL (38-106)
[2023-07-28 15:18] LABS: Vit B1(Thiamine) 99 ug/L (38-122)
[2023-07-29 16:21] LABS: Anabasine Urine <2.0 ng/mL (<2.0)
[2023-07-29 18:33] LABS: Selenium 148 mcg/L (63-160)
== END ==
LOC: BARWHC3 13:18
PROVIDERS: ATTEND Surgery Plastic and Reconstructive Surgery
DX: E66.01 Morbid (severe) obesity due to excess calories (principal); E89.1 Postprocedural hypoinsulinemia; D50.8 Other iron deficiency anemias; E44.0 Moderate protein-calorie malnutrition; E55.9 Vitamin D deficiency, unspecified; D50.9 Iron deficiency anemia, unspecified; K91.2 Postsurgical malabsorption, not elsewhere classified; E44.1 Mild protein-calorie malnutrition; E45 Retarded development following protein-calorie malnutrition; K74.1 Hepatic sclerosis; E46 Unspecified protein-calorie malnutrition; N19 Unspecified kidney failure; T59.894A Toxic effect of other specified gases, fumes and vapors, undetermined, initial encounter
CPT/HCPCS: 84255; 84134; 84425; 80061; 80053; 82607; 82728; 82525; 82746; 83540; 83550; 83735; 84100; 84443; 84590; 84630; 85027; 85610; 85730; 82306; 83970; 83036; 80307; G0480; G0463; 80323; 99212

== ENCOUNTER 2023-09-04 10:56 | Day surgery (SDC) | payer MEDICARE, OTHER ==
[~2023-09-04 10:56] MED LIST: LIDOCAINE 1% (10MG/ML) FOR IV START INTRADERMA PRN
[2023-09-04] MEDS: LACTATED RINGERS 1,000 ML IV SCH (11:36)
[2023-09-04 12:00] LABS: Glucose,Whole Blood 94 mg/dL (70-110)
[2023-09-04] MEDS ORDERED: LIDOCAINE 1% INJ 10MG/ML (20 ML MDV) ONE (12:00)
[2023-09-04] MEDS ORDERED: GLYCOPYRROLATE 0.2 MG/ML 2 ML VIAL ONE (12:00)
[2023-09-04] MEDS ORDERED: PROPOFOL 10 MG/ML 20 ML VIAL IV ONE (12:00)
[2023-09-04 12:02] VITALS: TEMP 97.9
--- NOTE | 2023-09-04 12:08 | P.GSHP ---
History of Present Illness H&P Date: 09/04/23 CHIEF COMPLAINT: GERD HISTORY OF PRESENT ILLNESS: The patient is a 58-year-old female who presents reports gastroesophageal reflux disease. Upper endoscopy was offered for further evaluation and management. PAST MEDICAL HISTORY: Please see list. PAST SURGICAL HISTORY: Please see list. MEDICATIONS: Please see list. ALLERGIES: Please see list. SOCIAL HISTORY: No illicit drug use FAMILY HISTORY: No reports of Crohn disease or ulcerative colitis. REVIEW OF ORGAN SYSTEMS: CONSTITUTIONAL: No reports of fevers or chills. GI: Denies any blood in stools or constipation. PHYSICAL EXAM: VITAL SIGNS: Stable GENERAL: Well-developed and pleasant in no acute distress. HEENT: No scleral icterus. Extraocular movements grossly intact. Moist buccal mucosa. NECK: Supple without lymphadenopathy. CHEST: Unlabored respirations. Equal bilateral excursions. CARDIOVASCULAR: Regular rate and rhythm. Distal 2+ pulses. ABDOMEN: Soft, nondistended. MUSCULOSKELETAL: No clubbing, cyanosis, or edema. ASSESSMENT: 1. Gastroesophageal reflux disease PLAN: 1. Recommend proceeding with an upper endoscopy Past Medical History Past Medical History: Atrial Fibrillation, Diabetes Mellitus, Hypertension Additional Past Medical History / Comment(s): SOB with exertion, Diet Controlled Diabetes, occasional edema lower leg/feet, gout occasionally in left great toe, saw PCP 08/18/23 w/ Rt. abd./flank pain UTI vs. kidney stone - office called him 08/21/23 to say it was not a UTI but pt. to continue antibiotics until finished 08/29/23. History of Any Multi-Drug Resistant Organisms: None Reported Past Surgical History: Tonsillectomy Additional Past Surgical History / Comment(s): Colonoscopy, EGD, PATEL/cardioversion 03/27 Past Anesthesia/Blood Transfusion Reactions: No Reported Reaction Additional Past Anesthesia/Blood Transfusion Reaction / Comment(s): Pt has never had a blood transfusion. Smoking Status: Former smoker - Past Family History Mother Family Medical History: Cancer Medications and Allergies Home Medications Medication Instructions Recorded Confirmed Type Apixaban [Eliquis] 5 mg PO BID 08/29/22 09/04/23 History Metoprolol Tartrate 25 mg PO BID 08/29/22 08/21/23 History Escitalopram [Lexapro] 10 mg PO QAM 09/09/22 08/21/23 History Ergocalciferol [Vitamin D2 (1250 50,000 unit PO WEEKLY 08/02/23 09/04/23 History Mcg = 64695 Iu)] Vitamin A 10,000 unit PO DAILY 08/02/23 09/04/23 History Flecainide Acetate 50 mg PO QAM 08/21/23 08/21/23 History Tamsulosin [Flomax] 0.4 mg PO QAM 08/21/23 08/21/23 History lisinopriL [Zestril] 5 mg PO QAM 08/21/23 08/21/23 History Allergies Allergy/AdvReac Type Severity Reaction Status Date / Time No Known Allergies Allergy Verified 09/04/23 11:48 Surgical - Exam Vital Signs Temp Pulse Resp BP Pulse Ox 97.9 F 84 20 135/79 96 09/04/23 11:56 09/04/23 11:56 09/04/23 11:56 09/04/23 11:56 09/04/23 11:56
--- NOTE | 2023-09-04 12:17 | P.PCN ---
Date of Procedure: 09/04/23 Description of Procedure: PREOPERATIVE DIAGNOSIS: Gastroesophageal reflux disease. Morbid obesity, due to excess calories, BMI 70.7 POSTOPERATIVE DIAGNOSIS: Gastroesophageal reflux disease with erosive esophagitis Morbid obesity. Gastritis. Duodenitis OPERATION: Esophagogastroduodenoscopy with biopsies along esophagus, antrum and duodenum SURGEON: Shila Vann MD ANESTHESIA: MAC. INDICATIONS: The patient is a 58-year-old male who presents with reflux disease. Benefits and risks of the procedure were described. Informed consent was obtained. DESCRIPTION: The patient was brought into the endoscopy suite and laid in the left lateral decubitus position. An Olympus gastroscope was passed along the posterior oropharynx down to the distal esophagus where the squamocolumnar junction was encountered at 44 cm from the incisors. The stomach was entered and no bile reflux was found. Additional findings are listed below. Biopsies with cold forceps were obtained of the antrum. The first through third portion of the duodenum was examined. Retroflexion of the scope confirmed Hill grade 2 lower esophageal valve. The squamocolumnar junction demonstrated LA grade B erosive esophagitis. The stomach was desufflated. The patient tolerated the procedure well. FINDINGS: Squamocolumnar junction 44 cm from the incisors. Diaphragmatic hiatus at 44 cm. Hill grade 2 lower esophageal valve. LA grade C erosive esophagitis. Biopsies obtained Biopsies obtained of the duodenum. Presence of duodenitis Chronic gastritis with biopsies obtained. RECOMMENDATIONS: Upper endoscopy as needed. Plan - Discharge Summary Discharge Rx Participant: Yes New Discharge Prescriptions: Continue Metoprolol Tartrate 25 mg PO BID Ergocalciferol [Vitamin D2 (1250 Mcg = 18904 Iu)] 50,000 unit PO WEEKLY Flecainide Acetate 50 mg PO QAM Tamsulosin [Flomax] 0.4 mg PO QAM Apixaban [Eliquis] 5 mg PO BID Escitalopram [Lexapro] 10 mg PO QAM Vitamin A 10,000 unit PO DAILY lisinopriL [Zestril] 5 mg PO QAM Discharge Medication List Apixaban [Eliquis] 5 mg PO BID 08/29/22 [History] Metoprolol Tartrate 25 mg PO BID 08/29/22 [History] Escitalopram [Lexapro] 10 mg PO QAM 09/09/22 [History] Ergocalciferol [Vitamin D2 (1250 Mcg = 50303 Iu)] 50,000 unit PO WEEKLY 08/02/23 [History] Vitamin A 10,000 unit PO DAILY 08/02/23 [History] Flecainide Acetate 50 mg PO QAM 08/21/23 [History] Tamsulosin [Flomax] 0.4 mg PO QAM 08/21/23 [History] lisinopriL [Zestril] 5 mg PO QAM 08/21/23 [History] [place] [facility](s[facility]Ref[place] [facility] [place]/20/23 2:00 pm Patient Instructions/Handouts: GERD (Gastroesophageal Reflux Disease) (DC) Activity/Diet/Wound Care/Special Instructions: Start blood thinner MondaySeptember 05 Discharge Disposition: HOME SELF-CARE
[2023-09-04 13:29] VITALS: BP 109/63; PULSE 80; RESP 16
== END 2023-09-04 13:18 | disposition home or self-care (01) ==
LOC: ORWHC2ENDO 10:56
PROVIDERS: ATTEND Surgery Plastic and Reconstructive Surgery
DX: K29.50 Unspecified chronic gastritis without bleeding (principal); K21.00 Gastro-esophageal reflux disease with esophagitis, without bleeding; E11.9 Type 2 diabetes mellitus without complications; E66.01 Morbid (severe) obesity due to excess calories; I10 Essential (primary) hypertension; I48.91 Unspecified atrial fibrillation; K29.80 Duodenitis without bleeding; K31.89 Other diseases of stomach and duodenum; Z68.45 Body mass index [BMI] 70 or greater, adult; Z79.01 Long term (current) use of anticoagulants; Z87.891 Personal history of nicotine dependence; Z79.899 Other long term (current) drug therapy
CPT/HCPCS: 88305; 43239; J2001; J2704

== ENCOUNTER → 2023-09-20 | Outpatient (CLI) | payer MEDICARE, OTHER ==
[2023-09-20 15:33] VITALS: BP 152/107; PULSE 97; TEMP 97.5; BMI 73.1
--- NOTE | 2023-09-20 15:53 | P.BASOAP ---
Subjective Progress Note Date: 09/20/23 He has gallstones and severe pain. He is on flomax for kidney stones. He has gallstones and cholecystitis. Robotic cholecystitis. Has cardiac clearance. Needs cholecystectomy prior to surgery. Still sleeve advised. Objective - Vital Signs Vital signs: Vital Signs Temp 97.5 F L 09/20/23 15:27 Pulse 97 09/20/23 15:27 Resp BP 152/107 09/20/23 15:27 Pulse Ox FiO2 Intake & Output 09/19/23 09/20/23 09/20/23 18:59 06:59 18:59 Weight 221.353 kg Assessment/Plan Plan: Date: 09/20/23 Initial Weight: Initial BMI: Current Weight: 221.353 kg Current BMI: 73.1 Type of Surgery: Total Volume in Band: Previous Volume: Volume Removed: Volume Added: Band Size:
== END ==
LOC: BARWHC3 13:50
PROVIDERS: ATTEND Surgery Plastic and Reconstructive Surgery
DX: E66.01 Morbid (severe) obesity due to excess calories (principal); K80.20 Calculus of gallbladder without cholecystitis without obstruction; Z87.891 Personal history of nicotine dependence; Z91.048 Other nonmedicinal substance allergy status; Z68.45 Body mass index [BMI] 70 or greater, adult
CPT/HCPCS: 99211

== ENCOUNTER → 2023-10-02 | Outpatient (CLI) | payer MEDICARE, OTHER ==
[2023-10-02 16:00] VITALS: BMI 74.2
== END ==
LOC: BARWHC3 12:52
PROVIDERS: ATTEND Surgery Plastic and Reconstructive Surgery
DX: E66.01 Morbid (severe) obesity due to excess calories (principal); Z71.3 Dietary counseling and surveillance; Z68.45 Body mass index [BMI] 70 or greater, adult
CPT/HCPCS: 97804

== ENCOUNTER 2023-10-16 07:03 | Day surgery (SDC) | payer MEDICARE, OTHER ==
[2023-10-13 12:13] VITALS: BMI 70.5
[~2023-10-16 07:03] MED LIST changes: +HYDROmorphone 0.5 MG/0.5 ML SYRINGE IVP PRN; +droPERidol 5 MG/2 ML VIAL IVP PRN
[2023-10-16] MEDS ORDERED: INDOCYANINE GREEN 25 MG VIAL IV STA (07:22)
--- NOTE | 2023-10-16 07:22 | P.GSHP ---
History of Present Illness H&P Date: 10/16/23 CHIEF COMPLAINT: Gallstones HISTORY OF PRESENT ILLNESS: The patient is a 58-year-old male who presents with history of epigastric including right upper quadrant abdominal pain. He underwent diagnostic studies for the gallbladder. Separately his clinical picture was consistent with cholecystitis. Now he presents for surgical intervention. PAST MEDICAL HISTORY: Please see list PAST SURGICAL HISTORY: Please see list MEDICATIONS: Please see list ALLERGIES: Denies. SOCIAL HISTORY: No illicit drug use or recent tobacco use FAMILY HISTORY: Pertinent for gallbladder disease REVIEW OF ORGAN SYSTEMS: CONSTITUTIONAL: No reports of fevers or chills. HEENT: Denies any troubles with the vision or hearing. ENDOCRINE: No reports of hypothyroidism. RESPIRATORY: No recent pneumonias. CARDIOVASCULAR: Denies chest pain or palpitations GI: No blood in stools or constipation. MUSCULOSKELETAL: Has occasional joint pain including back pain. NEURO: No seizure disorders or headaches. No recent stroke. PSYCH: No depression or suicidal ideation. HEMATOLOGIC: No personal or family history of DVTs or pulmonary emboli. PHYSICAL EXAM: VITAL SIGNS: Afebrile vital signs stable GENERAL: Well-developed pleasant male in no acute distress. HEENT: No scleral icterus. Extraocular movements grossly intact. Moist buccal mucosa. NECK: Supple without lymphadenopathy. CHEST: Unlabored respirations. Equal bilateral excursions. CARDIOVASCULAR: Regular rate regular rhythm rhythm. Distal 2+ pulses. ABDOMEN: Soft, nondistended. Tender along the epigastrium and right upper quadrant. MUSCULOSKELETAL: No clubbing, cyanosis, or edema. NEURO : No focal or lateralizing signs. Cranial nerves II-12 within normal limits. PSYCH: Alert and oriented to person, place and time. SKIN: Well perfused. Good skin turgor. ASSESSMENT: 1. Epigastric and right upper quadrant abdominal pain 2. Chronic cholecystitis due to gallstones 3. BMI over 70 PLAN: 1. Will need a robotic cholecystectomy possible open. Benefits and risks were described. 2. Heparin for DVT prophylaxis 5000 units. 3. Antibiotic prophylaxis. 4. He is elevated risk due to BMI over 70 Past Medical History Past Medical History: Atrial Fibrillation, Diabetes Mellitus, GERD/Reflux, Hypertension Additional Past Medical History / Comment(s): SOB with exertion, Diet Controlled Diabetes. Occasional edema lower leg/feet. Gout occasionally in left great toe. Is scheduled for sleep apnea test 11-17-23. History of Any Multi-Drug Resistant Organisms: None Reported Past Surgical History: Tonsillectomy Additional Past Surgical History / Comment(s): Colonoscopy, EGD. Past Anesthesia/Blood Transfusion Reactions: No Reported Reaction Additional Past Anesthesia/Blood Transfusion Reaction / Comment(s): Pt has never had a blood transfusion. Smoking Status: Former smoker - Past Family History Mother Family Medical History: Cancer Additional Family Medical History / Comment(s): lung cancer Medications and Allergies Home Medications Medication Instructions Recorded Confirmed Type Apixaban [Eliquis] 5 mg PO BID 08/29/22 10/13/23 History Metoprolol Tartrate 25 mg PO BID 08/29/22 10/13/23 History Escitalopram [Lexapro] 10 mg PO QAM 09/09/22 10/13/23 History Ergocalciferol [Vitamin D2 (1250 50,000 unit PO WEEKLY 08/02/23 10/13/23 History Mcg = 50036 Iu)] Flecainide Acetate 50 mg PO BID 08/21/23 10/13/23 History lisinopriL [Zestril] 5 mg PO QAM 08/21/23 10/13/23 History Acetaminophen Tab [Tylenol Tab] 500 mg PO Q6H MDD pain 10/13/23 10/13/23 History Allergies Allergy/AdvReac Type Severity Reaction Status Date / Time No Known Allergies Allergy Verified 10/13/23 11:41
[2023-10-16] MEDS: LACTATED RINGERS 1,000 ML IV SCH (08:00)
[2023-10-16 08:01] LABS: Glucose,Whole Blood 98 mg/dL (70-110)
[2023-10-16 08:16] LABS: Basophils # (A) 0.1 k/uL (0-0.2); Basophils % (A) 1 %; Eosinophils # (A) 0.3 k/uL (0-0.7); Eosinophils % (A) 3 %; HCT 52.3 % (39.0-53.0); HGB 16.7 gm/dL (13.0-17.5); Lymphocytes # (A) 1.8 k/uL (1.0-4.8); Lymphocytes % (A) 21 %; MCH 28.9 pg (25.0-35.0); MCHC 31.8 g/dL (31.0-37.0); MCV 90.9 fL (80.0-100.0); Mean Platelet Volume 7.7; Monocytes # (A) 0.7 k/uL (0-1.0); Monocytes % (A) 8 %; Neutrophils # (A) 5.7 k/uL (1.3-7.7); Neutrophils % (A) 66 %; Platelet Count 294 k/uL (150-450); RBC 5.76 m/uL (4.30-5.90); RDW 13.7 % (11.5-15.5); WBC 8.6 k/uL (3.8-10.6)
[2023-10-16] MEDS: ONDANSETRON 4 MG/2 ML VIAL IVP ONE (08:30)
[2023-10-16] MEDS: DEXAMETHASONE SOD PHOSPHATE 4 MG/ML 1 ML VIAL IV ONE (08:30)
[2023-10-16] MEDS: HEPARIN SODIUM,PORCINE 5,000 UNIT/ML 1 ML VIAL SQ PRN (08:32)
[2023-10-16] MEDS: METOCLOPRAMIDE 5 MG/ML 2 ML VIAL ONE (08:34)
[2023-10-16] MEDS: FAMOTIDINE 20 MG/2 ML VIAL IVP ONE (08:35)
[2023-10-16 08:37] LABS: ALT 30 U/L (4-49); AST 36 U/L (17-59); African American GFR (CKD) >90 (>60 ml/min/1.73 sqM); Albumin 3.8 g/dL (3.5-5.0); Alkaline Phosphatase 80 U/L (38-126); Anion Gap 6 mmol/L; Blood Urea Nitrogen 14 mg/dL (9-20); Calcium 9.2 mg/dL (8.4-10.2); Carbon Dioxide 24 mmol/L (22-30); Chloride 110 mmol/L (98-107); Glucose 110 mg/dL (74-99); Non-African American GFR(CKD) >90 (>60 ml/min/1.73 sqM); Potassium 4.5 mmol/L (3.5-5.1); Sodium 140 mmol/L (137-145); Total Bilirubin 0.9 mg/dL (0.2-1.3); Total Protein 7.4 g/dL (6.3-8.2)
[2023-10-16] MEDS ORDERED: HYDROmorphone (PF) 1 MG/ML ONE (08:40)
[2023-10-16] MEDS ORDERED: PHENYLEPHRINE-0.9% NACL SYG 1,000 MCG/10 ML SYRINGE ONE (08:40)
[2023-10-16] MEDS ORDERED: ROCURONIUM 10 MG/ML (5 ML VIAL) IV ONE (08:40)
[2023-10-16] MEDS ORDERED: PROPOFOL 10 MG/ML 20 ML VIAL IV ONE (08:40)
[2023-10-16] MEDS ORDERED: LIDOCAINE 1% INJ 10MG/ML (20 ML MDV) ONE (08:40)
[2023-10-16] MEDS ORDERED: GLYCOPYRROLATE 0.2 MG/ML 2 ML VIAL ONE (08:40)
[2023-10-16] MEDS ORDERED: KETAMINE HCL IN 0.9 % NACL 50 MG/5 ML SYRINGE ONE (08:40)
[2023-10-16] MEDS ORDERED: NEOSTIGMINE 1 MG/ML 10 ML VIAL ONE (08:40)
[2023-10-16] MEDS ORDERED: SUCCINYLCHOLINE CHLORIDE 200 MG/10 ML VIAL IV ONE (08:40)
[2023-10-16] MEDS ORDERED: fentaNYL (PF) 50 MCG/ML 2 ML AMP ONE (08:40)
[2023-10-16] MEDS ORDERED: MIDAZOLAM 2 MG/2 ML VIAL ONE (08:40)
[2023-10-16] MEDS: ceFAZolin 3 GM in SODIUM CHLORIDE 0.9% 100 ML IVPB PRN (08:42)
[2023-10-16] MEDS: LIDOCAINE 1%-EPI 1:100,000 20 ML VIAL SQ ONE (09:10)
[2023-10-16 10:38] LABS: Glucose,Whole Blood 173 mg/dL (70-110)
--- NOTE | 2023-10-16 10:48 | P.OP ---
Date of Procedure: 10/16/23 Description of Procedure: SURGEON: CAITY POLANCO MD PREOPERATIVE DIAGNOSES: 1. Chronic cholecystitis with symptomatic gallstones 2. Morbid obesity due to excess calories, BMI 68.9 3. Atrial fibrillation, chronic 4. Hypertensive heart disease 5. Bilateral lower extremity venous stasis disease 6. Hyperlipidemia 7. Depressive disorder 8. Chronic anticoagulation 9. Gastroesophageal reflux disease 10. Generalized anxiety disorder 11. Remote tobacco abuse disorder POSTOPERATIVE DIAGNOSES: 1. Chronic cholecystitis with symptomatic gallstones 2. Morbid obesity due to excess calories, BMI 68.9 3. Atrial fibrillation, chronic 4. Hypertensive heart disease 5. Bilateral lower extremity venous stasis disease 6. Hyperlipidemia 7. Depressive disorder 8. Chronic anticoagulation 9. Gastroesophageal reflux disease 10. Generalized anxiety disorder 11. Remote tobacco abuse disorder 12. Right upper quadrant prior cholecystectomy adhesions 13. Mild hepatomegaly 14. Hydrops cholecystitis OPERATION: 1. Robotic-assisted da Fiorella Xi laparoscopic lysis of adhesions over 50% of the case 2. Robotic-assisted da Fiorella Xi laparoscopic cholecystectomy, multiport with FIREFLY ESTIMATED BLOOD LOSS: 5 mL. SPECIMENS REMOVED: Gallbladder. COMPLICATIONS: None. OPERATIVE FINDINGS: 1. Moderate scarring over entire gallbladder with peritoneal adhesions, pericholecystic with features of chronic cholecystitis requiring lysis of adhesions over 50% of the case 2. Multiple gallstones with chronic cholecystitis 3. Mild hepatomegaly 4. Dome down technique performed due to hydropic gallbladder INDICATIONS: The patient is a 58-year-old male who presents with symptomatic gal lstones. Robotic assisted laparoscopic approach was described. Benefits and risks of the procedure including but not limited to bleeding, infection, injury to the biliary tree was described. Informed consent was obtained. DESCRIPTION OF PROCEDURE: Patient was brought to the operating room, placed in supine position. After general induction, the abdomen had been prepped and draped in standard sterile fashion. The robotic da Fiorella XI system was primed. After a timeout protocol was performed, the patient had been prepped and draped in standard sterile fashion. The patient was injected with indocyanine green. A 5 mm 0 degrees laparoscopic trocar entry was performed along the left upper quadrant. The abdomen insufflated to 15 mmHg pressure which was tolerated well. Diagnostic laparoscopy demonstrated no injury to bowel viscera or mesentery. The liver surface was unremarkable. Next, two 8 mm robotic ports were placed along the right upper abdomen. The camera 8-mm port was maintained along the epigastrium. Another 8 mm port was placed along the left upper abdominal wall after exchanging the 5 mm port. Please note that the ports were placed at least 10 to 15 cm away from the target anatomy of the gallbladder. The robot was docked along the left lateral abdomen. The patient was repositioned in reverse Trendelenburg position. Using a grasper for arm 3, a grasper for arm 4, including hook cautery for arm 1, the robotic system was docked and primed as described. Instruments were interchanged by the engineering inspection assistant including hook cautery, Bovie cautery and clip appliers. I had sat at the console. The gallbladder was scarred with omental adhesions due to chronic cholecystitis. Lysis of adhesions was performed to free the gallbladder from the surrounding tissues for over 50% of the case. Additionally, dome down technique starting from the fundus towards the infundibulum was performed. The cystic duct was mildly dilated. Spillage of bile did occur during dissection of the gallbladder from the liver fossa. Suction irrigation was used to remove bile. No spillage of gallstones occurred. Next attention was brought to the infundibulum and cystic structures. The infundibulum and cystic duct were dissected free from surrounding tissues. The cystic duct was isolated. The cystic duct was mildly dilated. FIREFLY was used to identify the cystic artery and cystic structures. A critical view of safety was obtained. Large PLASTIC clips were used throughout the entire case. Using a clip service department manager, 2 clips were placed at the junction of the infundibulum and cystic duct. The cystic duct was divided between clips. Next, the cystic artery was similarly clipped and cauterized. Total of 3 clips were used at the hepatic fossa. Electro-Bovie cautery was used to remove the gallbladder from the hepatic fossa. Hemostasis was checked and found to be adequate. The robot was undocked. I re-scrubbed into the case. Using a 10 mm Endo Catch bag via the left upper quadrant incision, the specimen was removed from the abdominal cavity. All pneumoperitoneum instruments were evacuated from the abdominal cavity. The incisions were reapproximated using 4-0 Monocryl in an interrupted subcuticular fashion. Fascial defects were less than 8 mm in size. Please note along the trocar sites, local anesthetic was placed as a field block prior to insertion of all instruments. Liquid glue was applied to the skin. Along the left lateral trocar sites, OPTIFOAM dressing was used. At the end of the procedure needle, sponge, and instrument count had been verified correct by the rn neurosurgical. The patient was transferred to postanesthesia care unit in stable condition. Intraoperative films were shared with the patient's family. Plan - Discharge Summary Discharge Rx Participant: No New Discharge Prescriptions: New Simethicone [Gas-X] 125 mg PO AC-TID PRN #20 capsule PRN Reason: Pain Acetaminophen Tab [Tylenol Tab] 1,000 mg PO Q6HR PRN #30 tablet PRN Reason: Pain Continue Metoprolol Tartrate 25 mg PO BID Ergocalciferol [Vitamin D2 (1250 Mcg = 02251 Iu)] 50,000 unit PO WEEKLY Flecainide Acetate 50 mg PO BID Acetaminophen Tab [Tylenol] 500 mg PO Q6H MDD pain Apixaban [Eliquis] 5 mg PO BID Escitalopram [Lexapro] 10 mg PO QAM lisinopriL [Zestril] 5 mg PO QAM Discharge Medication List Apixaban [Eliquis] 5 mg PO BID 08/29/22 [History] Metoprolol Tartrate 25 mg PO BID 08/29/22 [History] Escitalopram [Lexapro] 10 mg PO QAM 09/09/22 [History] Ergocalciferol [Vitamin D2 (1250 Mcg = 57106 Iu)] 50,000 unit PO WEEKLY 08/02/23 [History] Flecainide Acetate 50 mg PO BID 08/21/23 [History] lisinopriL [Zestril] 5 mg PO QAM 08/21/23 [History] Acetaminophen Tab [Tylenol] 500 mg PO Q6H MDD pain 10/13/23 [History] Acetaminophen Tab [Tylenol Tab] 1,000 mg PO Q6HR PRN #30 tablet 10/16/23 [Rx] Simethicone [Gas-X] 125 mg PO AC-TID PRN #20 capsule 10/16/23 [Rx] [facility] up [facility]ment(s[facility]Ref[facility] [facility] [place] [place] [facility] [place] 10[facility]20/23 9:00 am Patient Instructions/Handouts: Low Fat Diet (DC), Laparoscopic Cholecystectomy (DC) Activity/Diet/Wound Care/Special Instructions: START ELIQUIS OCTOBER 17 Recommend low-fat diet for the next 2 days. No lifting over 10 pounds in 2 weeks until October 29October shower. No bath tub soaks for two weeks until October 29 Diet as tolerated. Use Tylenol, simethicone and ibuprofen or Aleve scheduled for the next 24-48 hours for best pain relief. Use ice along incisions for today to prevent swelling. Discharge Disposition: HOME SELF-CARE
[2023-10-16 11:08] VITALS: RESP 16; TEMP 97
[2023-10-16 12:43] VITALS: BP 128/76; PULSE 68
== END 2023-10-16 12:35 | disposition home or self-care (01) ==
LOC: OR 07:03
PROVIDERS: ATTEND Surgery Plastic and Reconstructive Surgery
DX: K80.12 Calculus of gallbladder with acute and chronic cholecystitis without obstruction (principal); I48.20 Chronic atrial fibrillation, unspecified; I11.9 Hypertensive heart disease without heart failure; E78.5 Hyperlipidemia, unspecified; K21.9 Gastro-esophageal reflux disease without esophagitis; E66.01 Morbid (severe) obesity due to excess calories; Z68.44 Body mass index [BMI] 60.0-69.9, adult; E11.9 Type 2 diabetes mellitus without complications; F41.1 Generalized anxiety disorder; I48.91 Unspecified atrial fibrillation; Z87.891 Personal history of nicotine dependence; Z79.01 Long term (current) use of anticoagulants; Z79.899 Other long term (current) drug therapy; Z98.890 Other specified postprocedural states; Z90.89 Acquired absence of other organs; Z80.1 Family history of malignant neoplasm of trachea, bronchus and lung
CPT/HCPCS: 47563; S2900; 80053; 85025; 88304

== ENCOUNTER → 2023-10-20 | Outpatient (CLI) | payer MEDICARE, OTHER ==
--- NOTE | 2023-10-20 10:14 | P.BASOAP ---
Subjective Progress Note Date: 10/20/23 19 gallstones. Identified problems with scales. Patient lost 20 more pounds from 4 88-4 58, 30 pounds. Problem with scales are not correlating. Will need electrical transmission engineer. Otherwise doing well. 1 sleeve gastrectomy. Has severe allergy to adhesives. Antibacterial soap. No infection. Use hydrogen peroxide. Assessment/Plan Plan: Date: Initial Weight: Initial BMI: Current Weight: Current BMI: Type of Surgery: Total Volume in Band: Previous Volume: Volume Removed: Volume Added: Band Size:
[2023-10-20 11:29] VITALS: BP 137/94; PULSE 56; RESP 14; TEMP 98.8; BMI 75.3
== END ==
LOC: BARWHC3 08:50
PROVIDERS: ATTEND Surgery Plastic and Reconstructive Surgery
DX: E66.01 Morbid (severe) obesity due to excess calories (principal); K80.20 Calculus of gallbladder without cholecystitis without obstruction; Z98.84 Bariatric surgery status; Z90.3 Acquired absence of stomach [part of]; Z91.048 Other nonmedicinal substance allergy status; Z68.45 Body mass index [BMI] 70 or greater, adult; Z87.891 Personal history of nicotine dependence; Z90.49 Acquired absence of other specified parts of digestive tract
CPT/HCPCS: 99211

== ENCOUNTER → 2023-11-15 | Outpatient (CLI) | payer MEDICARE, OTHER ==
[2023-11-16 02:53] LABS: Basophils # (A) 0.07 X 10*3/uL (0.00-0.10); Basophils % (A) 0.9 %; Eosinophils # (A) 0.15 X 10*3/uL (0.04-0.35); Eosinophils % (A) 1.8 %; HCT 52.9 % (39.6-50.0); HGB 16.9 g/dL (13.0-17.0); Lymphocytes # (A) 1.98 X 10*3/uL (0.90-5.00); Lymphocytes % (A) 24.4 %; MCH 28.5 pg (27.0-32.0); MCHC 31.9 g/dL (32.0-37.0); MCV 89.1 FL (80.0-97.0); Mean Platelet Volume 10.4 FL (9.5-12.2); Monocytes # (A) 0.79 X 10*3/uL (0.20-1.00); Monocytes % (A) 9.7 %; NRBC Per 100 WBC 0 X 10*3/uL (0.00-0.01); Neutrophils # (A) 5.11 X 10*3/uL (1.80-7.70); Platelet Count 348 X 10*3/uL (140-440); RBC 5.94 X 10*6/uL (4.40-5.60); RDW 13.4 % (11.5-14.5); WBC 8.12 X 10*3/uL (4.50-10.00)
[2023-11-16 03:29] LABS: ALT 40 U/L (10-49); AST 43 U/L (14-35); Albumin 4.2 g/dL (3.8-4.9); Albumin/Globulin Ratio 1.27 Ratio (1.60-3.17); Alkaline Phosphatase 88 U/L (41-126); BUN/Creat Ratio 8.91 Ratio (12.00-20.00); Blood Urea Nitrogen 9.8 mg/dL (9.0-27.0); Calcium 9.9 mg/dL (8.7-10.3); Carbon Dioxide 21.5 mmol/L (21.6-31.8); Chloride 104 mmol/L (96-109); Globulin 3.3 g/dL (1.6-3.3); Glucose 103 mg/dL (70-110); Potassium 4.8 mmol/L (3.5-5.5); Sodium 140 mmol/L (135-145); Total Bilirubin 0.5 mg/dL (0.3-1.2); Total Protein 7.5 g/dL (6.2-8.2)
== END | disposition home or self-care (01) ==
LOC: LABPAT 15:43
PROVIDERS: ATTEND Surgery Plastic and Reconstructive Surgery
DX: Z01.812 Encounter for preprocedural laboratory examination (principal)
CPT/HCPCS: 36415; 80053; 85025; 86850; 86900; 86901

== ENCOUNTER 2023-11-20 11:37 | Inpatient (IN) | payer MEDICARE, OTHER ==
--- NOTE | 2023-11-20 08:09 | P.GSHP ---
History of Present Illness H&P Date: 11/20/23 CHIEF COMPLAINT: Morbid obesity HISTORY OF PRESENT ILLNESS: Geovanny Barker is a 58-year-old male who comes with lifelong morbid obesity. As result of morbid obesity, he has developed diabetes type 2, hypertensive heart disease, obstructive sleep apnea, hyperlipidemia, osteoarthritis of the hips and knees. He has completed medical supervised weight loss. He completed medical including cardiac assessment. He has completed psychological risk assessment. All surgical options were reviewed. Mary moran elected for sleeve gastrectomy At height of 5 feet 11 inches, ideal body weight is 178 pounds. He comes in 493 pounds. His body mass index is 68.8. He is 315 pounds overweight. PAST MEDICAL HISTORY: 1. Morbid obesity due to excess calories 2. Body mass index of 84.8 3. Osteoarthritis of the knees. 4. Osteoarthritis of the lower back. 5. Hypertensive heart disease. 6. Gastroesophageal reflux disease 7. Obstructive sleep apnea 8. Atrial fibrillation 9. Diabetes type 2 10. Gout 11. Generalized anxiety disorder 12. Depressive disorder PAST SURGICAL HISTORY: 1. Cholecystectomy HOME MEDICATIONS: Reviewed ALLERGIES: Reviewed SOCIAL HISTORY: Past tobacco use. FAMILY HISTORY: No family history of ulcerative colitis disease or Crohn's disease. Family history of morbid obesity. No lupus in the family. No reports of stomach or esophageal cancer. REVIEW OF ORGAN SYSTEMS: CONSTITUTIONAL: At height of 5 feet 11 inches, ideal body weight is 178 pounds. He comes in 493 pounds. His body mass index is 68.8. He is 315 pounds overweight. HEENT: Denies any active troubles with vision or hearing. ENDOCRINE: Has diabetes. Denies hypothyroidism. CARDIOVASCULAR: Past reports of palpitations. Has atrial fibrillation RESPIRATORY: Has daytime somnolence. GASTROINTESTINAL: Denies any bright red blood per rectum. Has gastroesophageal reflux disease. MUSCULOSKELETAL: Has lower back pain and joint pain. Has osteoarthritis of the knees. NEURO: No headaches. No seizure disorders. PSYCH: Has depression. No suicidal ideation. Has generalized anxiety disorder RHEUMATOLOGIC: No lupus. No rheumatoid arthritis. HEMATOLOGIC: Denies any abnormal bleeding or bruising. No personal history of DVTs. SKIN: Has rash. No skin cancer. PHYSICAL EXAM: VITAL SIGNS: Height 5 foot 11 inches, weight 493 pounds. BMI 68.8 GENERAL: Well-developed in no acute distress. HEENT: No scleral icterus. Extraocular movements grossly intact. Hears conversational speech. No nasal drainage. NECK: Supple without lymphadenopathy. CHEST: Nonlabored respirations with equal bilateral excursions. CARDIOVASCULAR: Regular rate and regular rhythm. Distal 2+ pulses. ABDOMEN: Obese, soft, nontender, nondistended. MUSCULOSKELETAL: No clubbing, cyanosis. NEURO: No focal or lateralizing signs. Cranial nerves 2 through 12 grossly within normal limits. PSYCH: Appropriate affect. Alert and oriented to person, place and time. SKIN: Good skin turgor. Well perfused. ASSESSMENT: 1. Morbid obesity due to excess calories 2. Body mass index of 84.8 to 68.8 3. Osteoarthritis of the knees. 4. Osteoarthritis of the lower back. 5. Hypertensive heart disease. 6. Gastroesophageal reflux disease 7. Obstructive sleep apnea 8. Atrial fibrillation 9. Diabetes type 2 10. Gout 11. Generalized anxiety disorder 12. Depressive disorder PLAN: 1. Bariatric options between a sleeve, band and a Latia-en-Y gastric bypass were reviewed in detail. The patient elected for sleeve gastrectomy. Robotic assisted approach described. 2. The [place] [facility] Data was also reviewed with benefits and risks as described. 3. An 8 page second-generation bariatric consent form was reviewed in detail including potential of bleeding, infection, leaks, adequate weight loss, nutritional deficiencies which the patient demonstrated understanding of the risks. 4. A 2 week high-protein low caloric 800 kcal diet described to address hepatomegaly. 5. Preoperative labs including complete metabolic panel and CBC with type and screen recommended. 6. DVT prophylaxis per [place] [facility]. 7. Antibiotic prophylaxis. 8. Inpatient hospitalization anticipated for more than 2 nights. 9. All questions and concerns were addressed with the patient. 10. He is at elevated risk for perioperative complications secondary to pre- existing diabetes type 2, obstructive sleep apnea, pre-existing coronary artery disease. 11. Overall, patient has expressed understanding of bariatric care including postoperative diet and commitment of lifestyle. Patient should benefit from surgical intervention for correction of her morbid obesity. 12. He has obtained his targeted weight loss. Past Medical History Past Medical History: Atrial Fibrillation, Diabetes Mellitus, GERD/Reflux, Hypertension, Skin Disorder Additional Past Medical History / Comment(s): SOB with exertion, Diet Controlled Diabetes. Occasional edema lower leg/feet. Gout occasionally in left great toe. patch dry skin right lower leg, no sleep study done yet, saw card. for clearance in August, denies any new changes to health hx. since he saw Dr Houser History of Any Multi-Drug Resistant Organisms: None Reported Past Surgical History: Cholecystectomy, Tonsillectomy Additional Past Surgical History / Comment(s): Colonoscopy, EGD. lap ramón 10-16-23 Past Anesthesia/Blood Transfusion Reactions: No Reported Reaction Additional Past Anesthesia/Blood Transfusion Reaction / Comment(s): Pt has never had a blood transfusion. Smoking Status: Former smoker - Past Family History Mother Family Medical History: Cancer Additional Family Medical History / Comment(s): lung cancer Medications and Allergies Home Medications Medication Instructions Recorded Confirmed Type Apixaban [Eliquis] 5 mg PO BID 08/29/22 11/17/23 History Metoprolol Tartrate 25 mg PO BID 08/29/22 11/17/23 History Escitalopram [Lexapro] 10 mg PO QAM 09/09/22 11/17/23 History Ergocalciferol [Vitamin D2 (1250 50,000 unit PO WEEKLY 08/02/23 11/17/23 History Mcg = 92962 Iu)] Flecainide Acetate 50 mg PO BID 08/21/23 11/17/23 History lisinopriL [Zestril] 5 mg PO QAM 08/21/23 11/17/23 History Allergies Allergy/AdvReac Type Severity Reaction Status Date / Time adhesive AdvReac Rash/Hives Verified 11/17/23 09:02
[2023-11-20] MEDS ORDERED: MIDAZOLAM 2 MG/2 ML VIAL IV PRN (12:01)
[2023-11-20 12:36] LABS: Glucose,Whole Blood 94 mg/dL (70-110)
[2023-11-20] MEDS: LACTATED RINGERS 1,000 ML IV SCH (12:45)
[2023-11-20] MEDS: IV FLUID CONTINUATION 1,000 ML IV ONE ×2 (12:49→16:52)
[2023-11-20] MEDS: PANTOPRAZOLE 40 MG/10 ML VIAL IVP STA (12:54)
[2023-11-20] MEDS: ONDANSETRON 4 MG/2 ML VIAL IVP PRN (12:54)
[2023-11-20] MEDS: CHLORHEXIDINE GLUCONATE 15 ML CUP MUCOUS MEM STA (12:54)
[2023-11-20] MEDS: ALVIMOPAN 12 MG CAPSULE PO PRN (12:54)
[2023-11-20] MEDS: ACETAMINOPHEN TAB 500 MG TAB PO PRN (12:54)
[2023-11-20] MEDS: ENOXAPARIN 40 MG/0.4 ML SYRINGE SQ PRN (13:21)
[2023-11-20] MEDS: ceFAZolin 3 GM in SODIUM CHLORIDE 0.9% 100 ML IVPB PRN (14:03)
[2023-11-20] MEDS: LIDOCAINE 1%-EPI 1:100,000 20 ML VIAL SQ ONE ×2 (14:36→14:42)
[2023-11-20] MEDS: LACTATED RINGERS 1,000 ML IV ONE (14:37)
[2023-11-20] MEDS: HYDROmorphone 0.5 MG/0.5 ML SYRINGE IVP PRN (16:50)
[2023-11-20] MEDS ORDERED: HYDROmorphone 1 MG/ML 1 ML SYRINGE IVP PRN (16:54)
--- NOTE | 2023-11-20 17:01 | P.OP ---
Date of Procedure: 11/20/23 Description of Procedure: SURGEON: CAITY POLANCO MD PREOPERATIVE DIAGNOSES: 1. Morbid obesity due to excess calories 2. Body mass index of 84.8 to 68.8 3. Osteoarthritis of the knees. 4. Osteoarthritis of the lower back. 5. Hypertensive heart disease. 6. Gastroesophageal reflux disease 7. Obstructive sleep apnea 8. Atrial fibrillation 9. Diabetes type 2 10. Gout 11. Generalized anxiety disorder 12. Depressive disorder POSTOPERATIVE DIAGNOSES: 1. Morbid obesity due to excess calories 2. Body mass index of 84.8 to 68.8 3. Osteoarthritis of the knees. 4. Osteoarthritis of the lower back. 5. Hypertensive heart disease. 6. Gastroesophageal reflux disease 7. Obstructive sleep apnea 8. Atrial fibrillation 9. Diabetes type 2 10. Gout 11. Generalized anxiety disorder 12. Depressive disorder OPERATION: 1. Robotic assisted daVinci Xi laparoscopic sleeve gastrectomy with 40-English bougie, multiport. 2. Intraoperative esophagogastroduodenoscopy. ANESTHESIA: Gen. local anesthetic ESTIMATED BLOOD LOSS: 5 mL SPECIMENS REMOVED: Sleeve gastrectomy COMPLICATIONS: None. FINDINGS: 1. Negative intraoperative esophagogastrojejunoscopy leak test. 2. No large hiatus hernia. 3. Total of 7 staplers used including 2 - 60 mm green and 5 - 60 mm blue robot denilson used to create the gastric sleeve. 4. Sleeve gastrectomy 30 x 6 cm INDICATIONS: Geovanny Barker is a 58-year-old male who comes with lifelong morbid obesity. As result of morbid obesity, he has developed diabetes type 2, hypertensive heart disease, obstructive sleep apnea, hyperlipidemia, osteoarthritis of the hips and knees. He has completed medical supervised weight loss. He completed medical including cardiac assessment. He has completed psychological risk assessment. All surgical options were reviewed. He elected for sleeve gastrectomy At height of 5 feet 11 inches, ideal body weight is 178 pounds. He comes in 493 pounds. His body mass index is 68.8. He is 315 pounds overweight. DESCRIPTION: The patient was brought into the operating room theater. Preoperatively he had received Lovenox subcutaneously for DVT prophylaxis. Additionally he had Peridex oral solution as an oral decontaminant. After general induction, the abdomen was prepped and draped in standard sterile fashion. An Ioban draping was placed along the abdomen. No cross catheter was placed. A robotic da Fiorella Xi system was prepped and primed. At 15 cm from the xiphoid, proposed port sites were marked with indelible marker along the anterior axillary line bilaterally, mid axillary line bilaterally with each ports were marked 10 to 15 cm from each other. The registered dental assistant port was marked along the left lateral abdominal wall. The robotic stapler port was marked for the right midclavicular line. A 5 mm 0 degrees laparoscopic trocar entry was performed along the left upper quadrant. The abdomen was insufflated to 15 mmHg pressure he tolerated well. Diagnostic laparoscopy demonstrated no injury to bowel, viscera, or mesentery. The liver edge was sharp consistent with his 2-week high-protein low carbohydrate diet. No injury had occurred to the small bowel or viscera. Along the hiatus no recurrent hiatal hernia was found. A 8 mm port was placed along the right upper abdominal wall after exchanging the 5 mm port. A separate 8 mm port was placed along the left lateral abdominal wall. Please note that the ports were placed at least 20 cm away from the target anatomy. Care was taken to check each robotic arms were safely away from collision with the bed or the patient. At the epigastrium, a medium sized Shine liver retractor was placed under direct visualization with the Iron Soaker Helper placed under the right shoulder of the patient. Next, 12-mm robot stapler port was placed along the right upper quadrant. The camera 8-mm port was maintained along the epigastrium. The patient was repositioned in reverse Trendelenburg position at 25-degrees after lowering the bed. The robot was docked along the left side of the patient. Using a grasper for arm 4, a veseel sealer for arm 3, including grasper for arm 1, the robotic system was docked and primed as described. Instruments were interchanged by the registered dental assistant for stapler loads. The camera was placed at 30-degrees down. I had sat at the console. The pylorus was identified and 6 cm proximally along the greater curvature of the stomach, the short gastrics were mobilized upwards to the angle of His using a vessel sealer. Hemostasis was excellent during this portion of the procedure. Next, the upper pole of the stomach was adherent to the left jovanni, which was gently dissected free using atraumatic grasper. The nursing survey researcher placed a 40-English blunted tip bougie into the stomach. Robotic stapler green loads 60 mm x 2 and blue loads 60 mm x 5 were used to create the sleeve. Initial firing was across the antrum of the stomach towards the angle of His. The staple line was completely hemostatic and linear without corkscrewing. Hemostasis was excellent. The space from the angularis incisura of the sleeve was approximately 4 cm. I then went to the head of the bed to perform the intraoperative esophagogastroduodenoscopy leak test. The upper pole of the stomach was bathed using normal saline solution. The scope was withdrawn with careful inspection along the staple line for which no leaks were found along the entire length. Additionally, the sleeve was completely hemostatic without any encroachment along the angularis incisura. Its topology was a soft "J". No stricture was encountered upon placement of the scope. The GI tract was desufflated. The patient tolerated this portion of the procedure well. The scope was completely withdrawn. The robot was undocked. I then rescrubbed into case, whereby the irrigation fluid was aspirated from the abdominal cavity. Tisseel fibrin sealant was placed along the staple length. Once dried the Shine liver retractor was removed. Attention was now brought to removal of the specimen. The distal end of the sleeve gastrectomy specimen was brought out through the 12 mm port at the left upper quadrant. The specimen was gently removed en total, corresponding to 30 cm x 6 cm sleeve gastrectomy specimen. No contamination had occurred during this process. All instruments and pneumoperitoneum including irrigation fluid was removed from the abdominal cavity. The 12 mm port site was irrigated with warm normal saline solution and diluted hydron peroxide. The 12-mm port site was reapproximated using 0 Vicryl and Stephen-Melba of the left upper quadrant. The final incisions were closed using subcuticular interrupted suture of 4-0 Monocryl. Dermabond was applied to the skin once the skin had been cleansed. OptiFoam dressing was placed along the stomach extraction site. At the end of the procedure, needle, sponge, and instrument count was verified correct by the surgical garment fitter. The patient was taken to the postanesthesia care unit in stable condition. He had tolerated the procedure well.
[2023-11-20] MEDS: SODIUM CHLORIDE 0.9% 2,000 ML IV ONE (20:07)
[2023-11-20] MEDS: ACETAMINOPHEN IV (For NPO) 1,000 MG in EMPTY BAG 1 BAG IVPB SCH (20:08)
[2023-11-20] MEDS: FLECAINIDE 50 MG TAB PO SCH (20:09)
[2023-11-20] MEDS: METOCLOPRAMIDE 5 MG/ML 2 ML VIAL IVP SCH (20:10)
[2023-11-20] MEDS: SODIUM CHLORIDE 0.9% 1,000 ML IV SCH (20:10)
[2023-11-20] MEDS: ALBUTEROL NEBULIZED 2.5 MG/3 ML INHALATION SCH (21:29)
[2023-11-20] MEDS: METOPROLOL TARTRATE 25 MG TAB PO SCH (22:18)
[2023-11-20] MEDS: ONDANSETRON 4 MG/2 ML VIAL IVP SCH (22:18)
[2023-11-20] MEDS: PANTOPRAZOLE 40 MG/10 ML VIAL IVP SCH (22:19)
[2023-11-20] MEDS: ceFAZolin 3 GM in SODIUM CHLORIDE 0.9% 100 ML IVPB SCH (22:23)
[2023-11-20] MEDS: SIMETHICONE 40 MG/0.6 ML DROPS 2,000 MG/30 ML BOTTLE PO SCH (23:03)
[2023-11-21 02:53] VITALS: RESP 17
[2023-11-21 05:42] LABS: Glucose,Whole Blood 102 mg/dL (70-110)
[2023-11-21] MEDS: lisinopriL 5 MG TAB PO SCH (07:56)
[2023-11-21] MEDS: ENOXAPARIN 40 MG/0.4 ML SYRINGE SQ SCH (07:56)
[2023-11-21 08:31] LABS: Basophils # (A) 0.02 X 10*3/uL (0.00-0.10); Basophils % (A) 0.2 %; Eosinophils # (A) 0 X 10*3/uL (0.04-0.35); Eosinophils % (A) 0 %; HCT 46.1 % (39.6-50.0); HGB 14.8 g/dL (13.0-17.0); Lymphocytes # (A) 1.28 X 10*3/uL (0.90-5.00); Lymphocytes % (A) 11.3 %; MCH 28.5 pg (27.0-32.0); MCHC 32.1 g/dL (32.0-37.0); MCV 88.8 FL (80.0-97.0); Mean Platelet Volume 10.5 FL (9.5-12.2); NRBC Per 100 WBC 0 X 10*3/uL (0.00-0.01); Neutrophils # (A) 9.06 X 10*3/uL (1.80-7.70); Neutrophils % (A) 80.1 %; Platelet Count 292 X 10*3/uL (140-440); RBC 5.19 X 10*6/uL (4.40-5.60); RDW 13.4 % (11.5-14.5)
[2023-11-21 09:09] LABS: Blood Urea Nitrogen 9.8 mg/dL (9.0-27.0); Calcium 8.8 mg/dL (8.7-10.3); Chloride 105 mmol/L (96-109); Magnesium 1.9 mg/dL (1.5-2.4); Phosphorus 3.4 mg/dL (2.4-5.1); Potassium 4.4 mmol/L (3.5-5.5); Sodium 138 mmol/L (135-145)
[2023-11-21 11:11] VITALS: BMI 68.0
[2023-11-21 13:38] VITALS: BP 138/78; PULSE 80; TEMP 97.4
--- NOTE | 2023-11-21 13:55 | P.DS ---
Providers Date of admission: 11/20/23 11:37 Expected date of discharge: 11/21/23 Attending physician: Shila Vann Primary care physician: Colton Foster Hospital Course: Discharge diagnosis 1. Morbid obesity due to excess calories 2. Body mass index of 84.8 to 68.8 3. Osteoarthritis of the knees. 4. Osteoarthritis of the lower back. 5. Hypertensive heart disease. 6. Gastroesophageal reflux disease 7. Obstructive sleep apnea 8. Atrial fibrillation 9. Diabetes type 2 10. Gout 11. Generalized anxiety disorder 12. Depressive disorder 13. Leukocytosis likely reactive Hospital course Geovanny Barker is a 58-year-old male who comes with lifelong morbid obesity. He is status post robotic assisted da Fiorella laparoscopic sleeve gastrectomy. Patient tolerated surgery well. His pain is controlled. He is tolerating diet. He has been up and ambulating. He is having flatus. Denies any difficulty urinating. He is afebrile. He is stable for discharge. Physician Trial Paralegal note has been reviewed by physician. Signing provider agrees with the documented findings, assessment, and plan of care. Patient Condition at Discharge: Stable Plan - Discharge Summary Discharge Rx Participant: Yes New Discharge Prescriptions: New bisacodyL [Dulcolax] 5 mg PO DAILY PRN #10 tab PRN Reason: Constipation Simethicone 40 mg/0.6 ml Drops [Mylicon Drops] 40 mg PO PCHS PRN #30 ml PRN Reason: Gas Omeprazole [PriLOSEC] 40 mg PO DAILY #30 cap Ondansetron Odt [Zofran Odt] 4 mg PO Q8HR PRN #9 tab PRN Reason: Nausea Acetaminophen Tab [Tylenol] 1,000 mg PO Q6HR PRN #30 tablet PRN Reason: Pain Continue Metoprolol Tartrate 25 mg PO BID Flecainide Acetate 50 mg PO BID lisinopriL [Zestril] 5 mg PO QAM Discontinued Ergocalciferol [Vitamin D2 (1250 Mcg = 17457 Iu)] 50,000 unit PO WEEKLY Escitalopram [Lexapro] 10 mg PO QAM No Action Apixaban [Eliquis] 5 mg PO BID Discharge Medication List Apixaban [Eliquis] 5 mg PO BID 08/29/22 [History] Metoprolol Tartrate 25 mg PO BID 08/29/22 [History] Flecainide Acetate 50 mg PO BID 08/21/23 [History] lisinopriL [Zestril] 5 mg PO QAM 08/21/23 [History] Acetaminophen Tab [Tylenol] 1,000 mg PO Q6HR PRN #30 tablet 11/21/23 [Rx] Omeprazole [PriLOSEC] 40 mg PO DAILY #30 cap 11/21/23 [Rx] Ondansetron Odt [Zofran Odt] 4 mg PO Q8HR PRN #9 tab 11/21/23 [Rx] Simethicone 40 mg/0.6 ml Drops [Mylicon Drops] 40 mg PO PCHS PRN #30 ml 11/21/23 [Rx] bisacodyL [Dulcolax] 5 mg PO DAILY PRN #10 tab 11/21/23 [Rx] [facility] up [facility]ment(s[facility]Ref[facility] [place] [facility] 9:00 am Activity/Diet/Wound Care/Special Instructions: Liquid diet only for 2 weeks No lifting over 4 pounds in 4 weeks, May Shower. No soaking in bath tubs for 2 weeks Please notify your surgeon if you develop nausea and vomiting including new onset of abdominal pain. Continue to use incentive spirometry to prevent pneumonias. Please continue to ambulate at home to prevent blood clots in legs. Follow-up at the bariatric center. May shower. Dressings to be discontinued by surgeon in the office. Drink 64 oz of fluid daily. Start protein shakes on . Notify bariatric center for temp over 101.0, increased pain, drainage from incisions. No straws or carbonated beverages. Liquid diet only. Sugar content should be less than 6 g to avoid dumping syndrome. Take MOM for constipation. CRUSH, OPEN, OR CUT TABLETS LARGER THAN A SIZE OF A TIC TAC Do not take Lexapro or vitamins until seen by surgeon due to increased bleeding risk Discharge Disposition: HOME SELF-CARE
--- NOTE | 2023-11-21 14:22 | FL ---
EXAMINATION TYPE: FL UGI DATE OF EXAM: 11/21/2023 COMPARISON: None HISTORY: Post gastric sleeve TECHNIQUE: A single contrast UGI study is performed. FINDINGS: Contrast passes from the distal esophagus through the gastric sleeve with mild hesitancy. N o extravasation of contrast is evident. No free air is noted during this examination. Overhead radiographs were obtained which are unremarkable. IMPRESSION: 1. Mild hesitancy passing through the gastric sleeve. 2. No extravasation evident.
== END 2023-11-21 16:43 | disposition home or self-care (01) | DRG 621 ==
LOC: 2ORMAIN 11:37 → 4SSUR 18:29
PROVIDERS: ADMIT Surgery Plastic and Reconstructive Surgery; ATTEND Surgery Plastic and Reconstructive Surgery
PROC: 0DJ08ZZ Inspection of Upper Intestinal Tract, Via Natural or Artificial Opening Endoscopic (ICD-10-PCS; principal; 2023-11-20 13:20)
PROC: 0DB64Z3 Excision of Stomach, Percutaneous Endoscopic Approach, Vertical (ICD-10-PCS; principal; 2023-11-20 13:20)
PROC: 8E0W4CZ Robotic Assisted Procedure of Trunk Region, Percutaneous Endoscopic Approach (ICD-10-PCS; principal; 2023-11-20 13:20)
DX: E66.01 Morbid (severe) obesity due to excess calories (principal); E78.5 Hyperlipidemia, unspecified; E11.9 Type 2 diabetes mellitus without complications; M17.0 Bilateral primary osteoarthritis of knee; M16.0 Bilateral primary osteoarthritis of hip; M10.9 Gout, unspecified; M19.09 Primary osteoarthritis, other specified site; K21.9 Gastro-esophageal reflux disease without esophagitis; G47.33 Obstructive sleep apnea (adult) (pediatric); I48.91 Unspecified atrial fibrillation; F41.1 Generalized anxiety disorder; F32.A Depression, unspecified; D72.829 Elevated white blood cell count, unspecified; I11.9 Hypertensive heart disease without heart failure; Z79.899 Other long term (current) drug therapy; Z68.44 Body mass index [BMI] 60.0-69.9, adult; Z87.891 Personal history of nicotine dependence; Z79.01 Long term (current) use of anticoagulants
CPT/HCPCS: 74240; 80051; 82310; 82565; 83735; 84100; 84520; 85025; 88307; 94640; 94760

== ENCOUNTER → 2023-12-25 | Outpatient (CLI) | payer MEDICARE, OTHER ==
[2023-12-25 13:18] LABS: INR 1.1 (<1.2); Partial Thromboplastin Time 28.6 sec (22.0-30.0); Prothrombin Time 11.8 sec (10.0-12.5)
[2023-12-25 17:01] LABS: HCT 48.8 % (39.6-50.0); HGB 15.9 g/dL (13.0-17.0); MCH 28.1 pg (27.0-32.0); MCHC 32.6 g/dL (32.0-37.0); MCV 86.4 FL (80.0-97.0); Mean Platelet Volume 10.8 FL (9.5-12.2); NRBC Per 100 WBC 0 X 10*3/uL (0.00-0.01); Platelet Count 292 X 10*3/uL (140-440); RBC 5.65 X 10*6/uL (4.40-5.60); RDW 14.6 % (11.5-14.5); WBC 7.98 X 10*3/uL (4.50-10.00)
[2023-12-25 19:24] LABS: Prealbumin 16.1 mg/dL (18.0-42.0)
[2023-12-25 19:44] LABS: ALT 52 U/L (10-49); AST 50 U/L (14-35); Albumin/Globulin Ratio 1.33 Ratio (1.60-3.17); Alkaline Phosphatase 76 U/L (41-126); BUN/Creat Ratio 15.56 Ratio (12.00-20.00); Calcium 9.2 mg/dL (8.7-10.3); Carbon Dioxide 17.6 mmol/L (21.6-31.8); Chloride 107 mmol/L (96-109); Chol/HDL Ratio 4.92 Ratio; Glucose 90 mg/dL (70-110); Iron 65 UG/DL (65-175); LDL Cholesterol,Calculated 99.7 mg/dL (0.0-131.0); Magnesium 1.9 mg/dL (1.5-2.4); Phosphorus 3.4 mg/dL (2.4-5.1); Potassium 4.2 mmol/L (3.5-5.5); Sodium 141 mmol/L (135-145); Total Bilirubin 0.6 mg/dL (0.3-1.2); Total Iron Binding Capacity 378 UG/DL (228-460)
[2023-12-26 13:20] LABS: Zinc, Serum 66 ug/dL (60-130)
[2023-12-27 12:08] LABS: Vitamin A 26 ug/dL (38-106)
== END | disposition home or self-care (01) ==
LOC: LABWHC1 11:57
PROVIDERS: ATTEND Surgery Plastic and Reconstructive Surgery
DX: E89.1 Postprocedural hypoinsulinemia (principal); D50.8 Other iron deficiency anemias; D50.9 Iron deficiency anemia, unspecified; K91.2 Postsurgical malabsorption, not elsewhere classified; E66.01 Morbid (severe) obesity due to excess calories; E44.0 Moderate protein-calorie malnutrition; E44.1 Mild protein-calorie malnutrition; E45 Retarded development following protein-calorie malnutrition; E55.9 Vitamin D deficiency, unspecified; K74.1 Hepatic sclerosis; N19 Unspecified kidney failure; T56.894A Toxic effect of other metals, undetermined, initial encounter; K50.90 Crohn's disease, unspecified, without complications
CPT/HCPCS: 36415; 80053; 80061; 82306; 82525; 82607; 82728; 82746; 83036; 83540; 83550; 83735; 83970; 84100; 84134; 84255; 84425; 84443; 84590; 84630; 85027; 85610; 85730

== ENCOUNTER → 2024-02-21 | Outpatient (CLI) | payer MEDICARE, OTHER ==
[2024-02-21 13:58] VITALS: BP 115/75; PULSE 90; RESP 16; TEMP 97.4; BMI 67.1
--- NOTE | 2024-02-21 15:01 | P.BASOAP ---
Subjective Progress Note Date: 02/21/24 He omeprazole is off. He is taking yogurt. He has access to stairs. He wants to get to 270 pounds. 10 stairs daily. 100 grams to 120 grams. Due for labs. No belly pain. He lost 20 pounds in 1 month. Free weight loss. Objective - Vital Signs Vital signs: Vital Signs Temp 97.4 F L 02/21/24 13:51 Pulse 90 02/21/24 13:51 Resp 16 02/21/24 13:51 BP 115/75 02/21/24 13:51 Pulse Ox FiO2 Intake & Output 02/20/24 02/21/24 02/21/24 18:59 06:59 18:59 Weight 203.209 kg Assessment/Plan Plan: Date: 02/21/24 Initial Weight: Initial BMI: Current Weight: 203.209 kg Current BMI: 67.1 Type of Surgery: Total Volume in Band: Previous Volume: Volume Removed: Volume Added: Band Size:
== END ==
LOC: BARWHC3 13:29
PROVIDERS: ATTEND Surgery Plastic and Reconstructive Surgery
DX: E66.01 Morbid (severe) obesity due to excess calories (principal); Z71.3 Dietary counseling and surveillance; Z91.048 Other nonmedicinal substance allergy status; Z68.44 Body mass index [BMI] 60.0-69.9, adult
CPT/HCPCS: 97803; G0463; 99211

== ENCOUNTER → 2024-02-21 | Outpatient (CLI) | payer MEDICARE, OTHER ==
[2024-02-21 15:59] LABS: INR 1.2 (<1.2); Partial Thromboplastin Time 28.8 sec (22.0-30.0); Prothrombin Time 12.3 sec (10.0-12.5)
[2024-02-21 19:24] LABS: Prealbumin 20.2 mg/dL (18.0-42.0)
[2024-02-21 20:32] LABS: Chol/HDL Ratio 4.56 Ratio; LDL Cholesterol,Calculated 119.9 mg/dL (0.0-131.0); Phosphorus 3.3 mg/dL (2.4-5.1)
[2024-02-21 20:33] LABS: % Iron Saturation 21.72 (15.00-50.00); ALT 43 U/L (10-49); AST 43 U/L (14-35); Albumin 4.3 g/dL (3.8-4.9); Albumin/Globulin Ratio 1.19 Ratio (1.60-3.17); Alkaline Phosphatase 78 U/L (41-126); Blood Urea Nitrogen 11.1 mg/dL (9.0-27.0); Calcium 9.7 mg/dL (8.7-10.3); Carbon Dioxide 19.9 mmol/L (21.6-31.8); Chloride 105 mmol/L (96-109); Globulin 3.6 g/dL (1.6-3.3); Glucose 98 mg/dL (70-110); Iron 86 UG/DL (65-175); Potassium 4.4 mmol/L (3.5-5.5); Sodium 140 mmol/L (135-145); Total Bilirubin 0.7 mg/dL (0.3-1.2); Total Iron Binding Capacity 396 UG/DL (228-460); Total Protein 7.9 g/dL (6.2-8.2)
[2024-02-21 20:36] LABS: HCT 53.4 % (39.6-50.0); HGB 17.3 g/dL (13.0-17.0); MCH 28.3 pg (27.0-32.0); MCHC 32.4 g/dL (32.0-37.0); MCV 87.4 FL (80.0-97.0); NRBC Per 100 WBC 0 X 10*3/uL (0.00-0.01); Platelet Count 300 X 10*3/uL (140-440); RBC 6.11 X 10*6/uL (4.40-5.60); RDW 14.7 % (11.5-14.5); WBC 7.59 X 10*3/uL (4.50-10.00)
[2024-02-22 14:55] LABS: Zinc, Serum 66 ug/dL (60-130)
[2024-02-23 13:21] LABS: Vit B1(Thiamine) 74 ug/L (38-122)
[2024-02-26 09:47] LABS: Vitamin A 34 ug/dL (38-106)
[2024-03-01 07:40] LABS: Selenium 131 mcg/L (63-160)
== END | disposition home or self-care (01) ==
LOC: LABWHC1 15:07
PROVIDERS: ATTEND Surgery Plastic and Reconstructive Surgery
DX: E66.01 Morbid (severe) obesity due to excess calories
CPT/HCPCS: 36415; 80053; 80061; 82306; 82525; 82607; 82728; 82746; 83036; 83540; 83550; 83735; 83970; 84100; 84134; 84255; 84425; 84443; 84590; 84630; 85027; 85610; 85730

== ENCOUNTER → 2024-08-07 | Outpatient (CLI) | payer MEDICARE, OTHER ==
[2024-08-07 13:34] VITALS: BP 145/90; PULSE 82; RESP 16; TEMP 97.9; BMI 62.6
--- NOTE | 2024-08-07 14:30 | P.BASOAP ---
Subjective Progress Note Date: 08/07/24 He is slow weight loss. He is 80 pounds weight loss. Was 495 pounds now. 418 pounds. Goal 120 grams. Needs 120 oz. Needs labs. Objective - Vital Signs Vital signs: Vital Signs Temp 97.9 F 08/07/24 13:32 Pulse 82 08/07/24 13:32 Resp 16 08/07/24 13:32 BP 145/90 08/07/24 13:32 Pulse Ox FiO2 Intake & Output 08/06/24 08/07/24 08/07/24 18:59 06:59 18:59 Weight 189.602 kg Assessment/Plan Plan: Date: 08/07/24 Initial Weight: Initial BMI: Current Weight: 189.602 kg Current BMI: 62.6 Type of Surgery: Vertical Sleeve Gastrectomy Total Volume in Band: Previous Volume: Volume Removed: Volume Added: Band Size:
[2024-08-07 18:23] LABS: HCT 46.7 % (39.6-50.0); MCH 28.8 pg (27.0-32.0); MCHC 32.1 g/dL (32.0-37.0); MCV 89.6 FL (80.0-97.0); Mean Platelet Volume 12.3 FL (9.5-12.2); NRBC Per 100 WBC 0 X 10*3/uL (0.00-0.01); Platelet Count 258 X 10*3/uL (140-440); RBC 5.21 X 10*6/uL (4.40-5.60); RDW 14.2 % (11.5-14.5); WBC 8.73 X 10*3/uL (4.50-10.00)
[2024-08-07 18:32] LABS: Prealbumin 18.7 mg/dL (18.0-42.0)
[2024-08-07 18:55] LABS: % Iron Saturation 15.68 (15.00-50.00); ALT 43 U/L (10-49); AST 39 U/L (14-35); Albumin 4.1 g/dL (3.8-4.9); Albumin/Globulin Ratio 1.32 Ratio (1.60-3.17); Alkaline Phosphatase 80 U/L (41-126); BUN/Creat Ratio 12.64 Ratio (12.00-20.00); Blood Urea Nitrogen 13.9 mg/dL (9.0-27.0); Carbon Dioxide 24.2 mmol/L (21.6-31.8); Chloride 108 mmol/L (96-109); Chol/HDL Ratio 3.97 Ratio; Globulin 3.1 g/dL (1.6-3.3); Glucose 93 mg/dL (70-110); Iron 58 UG/DL (65-175); LDL Cholesterol,Calculated 99.3 mg/dL (0.0-131.0); Potassium 4.3 mmol/L (3.5-5.5); Sodium 144 mmol/L (135-145); Total Bilirubin 0.7 mg/dL (0.3-1.2); Total Iron Binding Capacity 370 UG/DL (228-460); Total Protein 7.2 g/dL (6.2-8.2); VLDL Calculation 18.88 mg/dL (5.00-40.00)
== END ==
LOC: BARWHC3 13:15
PROVIDERS: ATTEND Surgery Plastic and Reconstructive Surgery
DX: E66.01 Morbid (severe) obesity due to excess calories (principal); Z91.048 Other nonmedicinal substance allergy status; Z68.44 Body mass index [BMI] 60.0-69.9, adult
CPT/HCPCS: 84255; 84134; 84425; 80061; 80053; 82607; 82728; 82525; 82746; 83540; 83550; 83735; 84100; 84443; 84590; 84630; 85027; 82306; 83970; G0463; 99211

== ENCOUNTER → 2024-08-08 | Outpatient (CLI) | payer MEDICARE, OTHER ==
[2024-08-08 08:03] LABS: INR 1.1 (<1.2); Partial Thromboplastin Time 27.9 sec (22.0-30.0); Prothrombin Time 12.1 sec (10.0-12.5)
== END | disposition home or self-care (01) ==
LOC: LABWHC1 07:16
PROVIDERS: ATTEND Surgery Plastic and Reconstructive Surgery
DX: E66.01 Morbid (severe) obesity due to excess calories (principal); E55.9 Vitamin D deficiency, unspecified; E89.1 Postprocedural hypoinsulinemia; E44.0 Moderate protein-calorie malnutrition; E45 Retarded development following protein-calorie malnutrition; D50.8 Other iron deficiency anemias; D50.9 Iron deficiency anemia, unspecified; K74.1 Hepatic sclerosis; N19 Unspecified kidney failure; T56.894A Toxic effect of other metals, undetermined, initial encounter; K50.90 Crohn's disease, unspecified, without complications
CPT/HCPCS: 36415; 85610; 85730

== ENCOUNTER → 2024-08-30 | Outpatient (CLI) | payer MEDICARE, OTHER ==
--- NOTE | 2024-08-30 11:01 | US ---
EXAMINATION TYPE: US kidneys/renal and bladder DATE OF EXAM: 08/30/2024 COMPARISON: CT abdomen and pelvis 05/09/2019 CLINICAL INDICATION: Male, 59 years old with history of R39.12 POOR URINARY STREAM Z91.89 OTH PERS RI SK FA; TECHNIQUE: Grayscale imaging of the bilateral kidneys and urinary bladder: FINDINGS: EXAM MEASUREMENTS: Right Kidney: 10.9 x 4.7 x 5.0 cm Left Kidney: 11.1 x 5.2 x 4.9 cm Post Void Residual Volume: n/a mL Right Kidney: wnl, no evidence for hydronephrosis, mass or renal calculus. Left Kidney: wnl, no evidence for hydronephrosis, mass or renal calculus. Bladder: wnl Bilateral Jets seen: No Normal Post Void Residual: n/a There is no evidence for hydronephrosis at this point in time. No nephrolithiasis is seen. No mirta s are identified. Cortical measured differentiation is maintained bilaterally. No cortical thinning. The urinary bladder is anechoic. The bilateral ureter jets are not identified. IMPRESSION: No hydronephrosis or nephrolithiasis. [facility], , 08/30/2024 10:59 AM
--- NOTE | 2024-08-30 11:02 | US ---
EXAMINATION TYPE: US carotid duplex BILAT DATE OF EXAM: 08/30/2024 COMPARISON: Carotid ultrasound 05/30/2023 CLINICAL INDICATION: Male, 59 years old with history of carotid stenosis. Additional History: .... TECHNIQUE: Grayscale, color Doppler and spectral Doppler evaluation of the bilateral carotid systems and vertebral arteries. Indirect Doppler criteria was utilized. FINDINGS: EXAM MEASUREMENTS: RIGHT: Peak Systolic Velocity (PSV) cm/sec ----- Right CCA: 107 ----- Right ICA: 62.4 ----- Right ECA: 96.7 ICA/CCA ratio: 0.6 RIGHT: End Diastole cm/sec ----- Right CCA: 26 ----- Right ICA: 0 ----- Right ECA: 16.4 LEFT: Peak Systolic Velocity (PSV) cm/sec ----- Left CCA: 94.3 ----- Left ICA: 70.5 ----- Left ECA: 95.9 ICA/CCA ratio: 0.7 LEFT: End Diastole cm/sec ----- Left CCA: 22.1 ----- Left ICA: 18 ----- Left ECA: 13.9 VERTEBRALS (direction of flow): Right Vertebral: Antegrade Left Vertebral: Antegrade Rhythm: Normal MEDICAL ONCOLOGY PHYSICIAN NOTES: No significant stenosis seen Color Doppler imaging shows patency with blood flow throughout the carotid artery. Spectral waveforms are within normal limits. IMPRESSION: Right: No hemodynamically significant stenosis. Left: No hemodynamically significant stenosis. Criteria for Assigning % of Stenosis / Diameter reduction (Estimation based on the indirect measurements of the internal carotid artery velocities (ICA PSV). 1. Normal (no stenosis)=ICA PSV < 125 cm/s: ratio < 2.0: ICA EDV<40 cm/s. 2. Less than 50% stenosis=ICA PSV < 125 cm/s: ratio < 2.0: ICA EDV<40 cm/s. 3. 50 to 69% stenosis=ICA PSV of 125 to 230 cm/s: ration 2.0 ? 4.0: ICA EDV 40-100 cm/s. 4. Greater than 70% stenosis to near occlusion= ICA PSV > 230 cm/s: ratio > 4.0: ICA EDV > 100 cm/s. 5. Near occlusion= ICA PSV velocities may be low or undetectable: variable ratio and ICA EDV. 6. Total occlusion=unable to detect flow. [facility], , 08/30/2024 11:00 AM
== END | disposition home or self-care (01) ==
LOC: RADUSWWP 10:24
PROVIDERS: ATTEND Family Medicine
DX: R39.12 Poor urinary stream (principal); Z91.89 Other specified personal risk factors, not elsewhere classified
CPT/HCPCS: 76770; 93880

== ENCOUNTER → 2024-12-18 | Outpatient (CLI) | payer MEDICARE, OTHER ==
[2024-12-18 13:33] VITALS: BP 154/96; PULSE 82; RESP 16; TEMP 97.9; BMI 59.8
--- NOTE | 2024-12-18 14:41 | P.BASOAP ---
Subjective Progress Note Date: 12/18/24 His face is skinnier. He was sick for 1 month due to viral and covid illness. He has pain in neck and herniated disks of the neck. He reports lower back pain with walking. He is 399 pounds. He reports high sodium. Getting 100 oz of fluids. Needs recheck. He is 1 year out. FU 1 month, strategic weight loss. TSH. Objective - Vital Signs Vital signs: Vital Signs Temp 97.9 F 12/18/24 13:31 Pulse 82 12/18/24 13:31 Resp 16 12/18/24 13:31 BP 154/96 12/18/24 13:31 Pulse Ox FiO2 Intake & Output 12/17/24 12/18/24 12/18/24 18:59 06:59 18:59 Weight 180.983 kg Assessment/Plan Plan: Date: 12/18/24 Initial Weight: 224.528 kg Initial BMI: 74.1 Current Weight: 180.983 kg Current BMI: 59.8 Type of Surgery: Vertical Sleeve Gastrectomy Total Volume in Band: Previous Volume: Volume Removed: Volume Added: Band Size:
== END ==
LOC: BARWHC3 11:53
PROVIDERS: ATTEND Surgery Plastic and Reconstructive Surgery
DX: E66.01 Morbid (severe) obesity due to excess calories (principal); E03.9 Hypothyroidism, unspecified; Z68.43 Body mass index [BMI] 50.0-59.9, adult; Z91.048 Other nonmedicinal substance allergy status
CPT/HCPCS: 84443; G0463; 99211